=== PATIENT | male | born 1945 | race Caucasian/White ===

== ENCOUNTER 2022-03-13 05:42 | Inpatient (IN) ==
--- NOTE | 2022-02-25 10:54 | PAT Medication Instructions ---
Medication Instructions Date of Service February 25, 2022 Home Medications Medication Instructions Recorded acetaminophen 325 mg tablet (Mapap 650 mg PO Q4H PRN pain #30 tabs 06/23/18 (acetaminophen)) amlodipine 5 mg tablet (Norvasc) 5 mg PO QAM #30 tabs 06/23/18 nitroglycerin 0.4 mg sublingual tablet 0.4 mg sublingual DIRECTED PRN Chest Pain acetaminophen 325 mg tablet (Mapap (acetaminophen)) 650 mg PO Q4H PRN pain amlodipine 5 mg tablet (Norvasc) 5 mg PO QAM aspirin 81 mg tablet,delayed release 81 mg PO QAM atorvastatin 10 mg tablet 10 mg PO PM fosinopril 40 mg tablet 40 mg PO QAM hydrochlorothiazide 25 mg tablet 12.5 mg PO QAM insulin glargine 100 unit/mL subcutaneous solution (Lantus U-100 Insulin) 22 unit subcut QAM metformin 1,000 mg tablet 1,000 mg PO BID metoprolol succinate 25 mg tablet,extended release 24 hr 50 mg PO QAM pantoprazole 40 mg tablet,delayed release 40 mg PO QAM Continue as directed nitroglycerin 0.4 mg sublingual tablet 0.4 mg sublingual DIRECTED PRN Chest Pain (if needed) ASK your prescriber and surgeon aspirin 81 mg tablet,delayed release 81 mg PO QAM DO NOT take the morning of surgery fosinopril 40 mg tablet 40 mg PO QAM hydrochlorothiazide 25 mg tablet 12.5 mg PO QAM metformin 1,000 mg tablet 1,000 mg PO BID Take morning of surgery With a small sip of water, OTHERWISE NOTHING TO EAT OR DRINK AFTER MIDNIGHT: acetaminophen 325 mg tablet (Mapap (acetaminophen)) 650 mg PO Q4H PRN pain (if needed) amlodipine 5 mg tablet (Norvasc) 5 mg PO QAM metoprolol succinate 25 mg tablet,extended release 24 hr 50 mg PO QAM pantoprazole 40 mg tablet,delayed release 40 mg PO QAM Take evening before surgery acetaminophen 325 mg tablet (Mapap (acetaminophen)) 650 mg PO Q4H PRN pain (if needed) atorvastatin 10 mg tablet 10 mg PO PM metformin 1,000 mg tablet 1,000 mg PO BID Insulin Dependent Diabetic Patients * Test your blood sugar the morning of surgery * If Blood Sugar is GREATER THAN 150, take HALF of your regular dose of: insulin glargine 100 unit/mL subcutaneous solution (Lantus U-100 Insulin) take 11 units * If Blood Sugar is LESS THAN 150, DO NOT TAKE ANY: insulin glargine 100 unit/mL subcutaneous solution (Lantus U-100 Insulin) Other Notes If you have any questions please call us at [phone] or [phone] or [phone] or [phone]
--- NOTE | 2022-02-27 10:34 | Anesthesiology Consultation ---
Date of Service February 27, 2022 Assessment & Plan (1) Encounter for pre-operative examination: Plan - awaiting confirmed EKG from [facility]. - check BSG am DOS. - difficult intubation: s/p cervical spine fusion with reduced ROM. H/o multiple glidescope intubations: grade 1 view. - cardiology 02/26/[address] [facility]: "...CAD-PCI x2 to LAD 07/2005 at [place] (cath due to abnormal stress test)...lumbar spine surgery on 03/13/22. This will be performed by Dr. Munoz [place] [facility]feeling well and does not offer any cardiovascular concerns today. Admits to feeling off balance and has limitation with activities due to his low back discomfort. Fortunately he has not had any falls or syncope. Denies chest pain, palpitations, and lightheadedness/dizziness. No changes in appetite, nausea, or vomiting. Denies shortness of breath, PND, and swelling. Denies abnormal bleeding. Denies fevers and chills...preop risk assessment, per Juan M Criteria, patient was counseled that he would be placed at a moderate risk (6.6%) for any adverse perioperative cardiovascular events associated with lumbar spine surgery. Patient is on a good medication regimen and no other cardiac testing or interventions would further lower that risk. Patient states he understands and is accepting of that risk and wishes to proceed with surgery- Patient should continue aspirin without interruption. If patient is to hold aspirin it is not recommend to hold any longer than 7 days..." - COVID screening: Per assessment on 02/27/2022: Travel screen negative, no known COVID-19 positive contacts or current COVID-19 related symptoms in past 2 weeks. Pt vaccinated. Surgeon arranging preop COVID testing, scheduled 03/11/2022. Awaiting results. Chart Review Chart Review: Pending: Refer to Additional Notes / Consult section and Patient seen in Pre Admission Testing Teaching & Discussion Pre-Anesthesia Teaching/Discussion Notes: Instructed NPO after midnight before surgery, except medications with 15 cc of water. Medication instructions provided according to the PAT guidelines. History Surgery Operation Date: 03/13/22 07:45 Proposed Procedures p L2-L3 Decompression and Fusion, Possible L1-L2, L3-L5 Hardware Removal, Spinal Cord Monitoring - Gavin Munoz, Height/Weight Height: 5 ft 11 in Weight: 97.1 kg Allergies Allergy/AdvReac Type Severity Reaction Status Date / Time No Known Allergies Allergy Verified 02/25/22 08:16 Medications Home Medications Medication Instructions Recorded Confirmed Last Taken nitroglycerin 0.4 mg sublingual 0.4 mg sublingual DIRECTED PRN 06/19/18 02/25/22 Unknown tablet Chest Pain acetaminophen 325 mg tablet (Mapap 650 mg PO Q4H PRN pain #30 tabs 06/23/18 02/25/22 Unknown (acetaminophen)) amlodipine 5 mg tablet (Norvasc) 5 mg PO QAM #30 tabs 06/23/18 02/25/22 Unknown aspirin 81 mg tablet,delayed 81 mg PO QAM 02/25/22 02/25/22 Unknown release atorvastatin 10 mg tablet 10 mg PO PM 02/25/22 02/25/22 Unknown fosinopril 40 mg tablet 40 mg PO QAM 02/25/22 02/25/22 Unknown hydrochlorothiazide 25 mg tablet 12.5 mg PO QAM 02/25/22 02/25/22 Unknown insulin glargine 100 unit/mL 22 unit subcut QAM 02/25/22 02/25/22 Unknown subcutaneous solution (Lantus U-100 Insulin) metformin 1,000 mg tablet 1,000 mg PO BID 02/25/22 02/25/22 Unknown metoprolol succinate 25 mg 50 mg PO QAM 02/25/22 02/25/22 Unknown tablet,extended release 24 hr pantoprazole 40 mg tablet,delayed 40 mg PO QAM 02/25/22 02/25/22 Unknown release Past Medical History Medical History (Updated 02/27/22 @ 11:24 by Viri Hernandez PA-C) Barretts esophagus CAD (coronary artery disease) 2005. Stents x 2 to LAD 07/2005> follows with Dr. Weaver at [facility] Diabetes mellitus treated with insulin and oral medication Diabetic macular edema gets injections every 6-8 weeks Diabetic neuropathy feet, legs, hands Diabetic retinopathy gets injections every 6-8 weeks Difficult intubation s/p cervical spine fusion with limited ROM, h/o glidescope intubation GERD (gastroesophageal reflux disease) controlled, stable per pt Hyperlipidemia Hypertension controlled, stable per pt Sleep apnea On CPAP-compliant Patient denies h/o stroke, seizures, heart attack, heart failure, blood clots or blood transfusions. Exercise / Class Metabolic Activity II 4-5 Yardwork/Stairs/Walk up hill (denies CP or SOB with 1 FOS) Past Family History Family History Daughter Multiple sclerosis Father Diabetes Aunt Diabetes Uncle Diabetes Brother Diabetes Past Surgical History Surgical History (Updated 02/27/22 @ 11:25 by Viri Hernandez PA-C) History of appendectomy History of arthroscopy right knee History of carpal tunnel release right History of cholecystectomy History of colonoscopy History of esophagogastroduodenoscopy (EGD) History of excision of pilonidal cyst History of heart artery stent 2005; stents x 2 History of tonsillectomy History of tooth extraction Hx of vasectomy S/P cervical spinal fusion LIMITED ROM ALL DIRECTIONS S/P ERCP 06/20/18: Grade 1 view, glidescope 3, ETT 8. S/P lumbar fusion X2 total Glidescope #3 used with gr I view Past Anesthesia History Difficult Airway and No Family Hx of Anesthesia Complications History of PONV No Hx of PONV and No Hx of Motion Sickness Social History Smoking Status: Never smoker Do You Dip or Chew Tobacco: No Hx Alcohol Use: No Hx Substance Use: No substance use type: does not use Review of Systems Patient denies chest pain, shortness of breath, dyspnea on exertion, fever, chills, cough, wheezing, or palpitations. Physical Exam Vital Signs Vitals BP 142/72 P 63 TEMP 98.8 SP02 96% on RA RESP 17 Physical Limited cervical extension range of motion without pain TMD 3.5 finger breadths Mallampati Score 3 Dentition: intact, several caps/crowns-upper front; denies chipped or loose teeth, implants or bridges Lungs: normal respiratory effort. Clear throughout to auscultation, no adventitious breath sounds Cardiac: regular rate and rhythm, no murmurs noted Carotid arteries: negative bruit bilat Lab Results Anesthesia Preop Results Results Anesthesia Widget: WBC 7.20 K/ul (4.8-10.8) 02/27/22 Hgb 13.7 g/dl (14.0-18.0) L 02/27/22 Hct 39.4 % (40.1-51.0) L 02/27/22 Plt 262 K/uL (130-400) 02/27/22 Na 139 mmol/L (136-145) 02/27/22 K 4.9 mmol/L (3.5-5.1) 02/27/22 Cl 103 mmol/L (98-107) 02/27/22 CO2 31 mmol/L (21-32) 02/27/22 BUN 22 mg/dl (6-23) 02/27/22 Creat 1.04 mg/dl (0.6-1.4) 02/27/22 Glucose Level 152 mg/dl (70-99(Fasting)) H 02/27/22 PT 10.5 Seconds (9.0-12.0) 02/27/22 PTT 26.2 Seconds (21.0-31.0) 02/27/22 INR 1.0 (0.9-1.1) 02/27/22 HA1c 7.6 % (4.5-5.6) H 02/27/22 Urine Color Yellow 02/27/22 Urine Appearance Clear (Clear) 02/27/22 Urine pH 5.5 (4.5-7.5) 02/27/22 Urine Specific Bloomer 1.012 (1.000-1.030) 02/27/22 Urine Protein Trace (Negative) H 02/27/22 Urine Glucose (UA) 2+ (Negative) H 02/27/22 Urine Ketones Negative (Negative) 02/27/22 Urine Blood Negative (Negative) 02/27/22 Urine Nitrite Negative (Negative) 02/27/22 Urine Bilirubin Negative (Negative) 02/27/22 Urine Urobilinogen Negative (Negative) 02/27/22 Urine Leukocyte Esterase Negative (Negative) 02/27/22 Urine WBC (Auto) 0 /hpf (0-5) 02/27/22 Urine RBC (Auto) 0-4 /hpf (0-4) 02/27/22 Urine Hyaline Casts (Auto) 0 /lpf (0-5) 02/27/22 Urine Epithelial Cells (Auto) 0-5 /lpf (0-5) 02/27/22 Urine Bacteria (Auto) Negative (Negative) 02/27/22 Blood Type O Negative 02/27/22 Antibody Screen NEGATIVE 02/27/22 Testing Laboratory Results Surgeon's office made aware of elevated A1c. Electrocardiogram Date: 02/27/22 Chest X-Ray Date: 02/27/22 Cervical spinal fixation hardware is seen. Cardiomegaly is noted. The lungs are clear. No evidence of pleural effusion or pneumothorax. IMPRESSION: No acute chest disease. Echocardiogram Date: 02/26/22 EF 61% Grade I diastolic dysfunction Mild aortic valve sclerosis, aortic stenosis is absent Aortic root mildly enlarged 4 cm Proximal ascending thoracic aorta mildly enlarged 4 cm Stress Test Date: 08/19/18 Pharmacologic EF 50-55% No rest or stress associated MPI defects. No evidence of myocardial ischemia or infarct
[2022-03-13] MEDS ORDERED: ACETAMINOPHEN 500 MG TAB PO SCH (06:00)
[2022-03-13] MEDS ORDERED: CeleBREX 200 MG CAP PO SCH (06:00)
[2022-03-13] MEDS ORDERED: LR 15ML/HR IV SCH (06:00)
[2022-03-13] MEDS ORDERED: ceFAZolin 2000MG 2,000 MG/15 ML SYR IV SCH (06:00)
[2022-03-13] MEDS ORDERED: GABAPENTIN 300 MG CAP PO SCH (06:00)
[2022-03-13] MEDS ORDERED: KETAMINE 50 MG/5 ML SYRINGE ONE (06:53)
[2022-03-13] MEDS ORDERED: LIDOCAINE 2% 20 MG/ML 5 ML SYR IV ONE (06:53)
[2022-03-13] MEDS ORDERED: ROCURONIUM BROMIDE 10 MG/ML 5 ML VIAL IV ONE ×3 (06:53→08:31)
[2022-03-13] MEDS ORDERED: fentaNYL citrate 100 MCG/2 ML VIAL ONE (06:53)
[2022-03-13] MEDS ORDERED: DEXAMETHASONE SOD INJ 4 MG/ML VIAL ONE (06:53)
[2022-03-13] MEDS ORDERED: PROPOFOL IV EMULSION 10 MG/ML 20 ML VIAL IV ONE (06:53)
[2022-03-13] MEDS ORDERED: ONDANSETRON INJ 2 MG/ML 2 ML VIAL ONE (06:53)
[2022-03-13] MEDS ORDERED: HYDROmorphone INJ 2 MG/ML SYR/VIAL ONE ×2 (06:54→07:06)
[2022-03-13] MEDS ORDERED: MIDAZOLAM HCL 1 MG/ML 2ML VIAL ONE (06:56)
[2022-03-13] MEDS ORDERED: BUPIVACAINE/EPINEPHRINE 0.25% 1:200,000 30 ML VIAL ONE (07:05)
[2022-03-13] MEDS ORDERED: ceFAZolin 330 MG/ML 1 GM VIAL ONE (07:05)
[2022-03-13] MEDS ORDERED: ONDANSETRON INJ 2 MG/ML 2 ML VIAL IV PRN ×2 (07:06→11:30)
[2022-03-13] MEDS ORDERED: ATROPINE SULFATE 0.1 MG/ML 10ML SYR IV PRN (07:06)
[2022-03-13] MEDS ORDERED: LABETALOL HCL IV 5 MG/ML 20ML IV PRN (07:06)
[2022-03-13] MEDS ORDERED: HYDROmorphone INJ 1 MG/ML SYRINGE IV PRN ×2 (07:06→11:30)
[2022-03-13] MEDS ORDERED: PROMETHAZINE HCL 12.5 MG in SODIUM CHLORIDE 0.9% 50 ML IV PRN ×2 (07:06→11:30)
--- NOTE | 2022-03-13 07:30 | History & Physical Bridge Note ---
Date of Service March 13, 2022 History & Physical Bridge Note I have examined the patient, reviewed the History & Physical and in the interval since the performance of the History & Physical I have noted the following changes of clinical significance: no changes noted
--- NOTE | 2022-03-13 07:31 | History & Physical Report ---
Date of Service March 13, 2022 Assessment & Plan (1) Neurogenic claudication due to lumbar spinal stenosis: Plan: L2-L3 decompression and fusion, possible L1-L2, L3-L4 hardware removal History of Present Illness Chief Complaint: Back and leg pain Primary Care Provider: Cortez Root This is a 76-year-old male who presents with current persistent back and leg pain. Failed course of nonoperative care is here for surgical intervention. Allergies Allergy/AdvReac Type Severity Reaction Status Date / Time empagliflozin AdvReac Joint Pain Verified 03/13/22 06:05 [From Jardiance] pregabalin [From Lyrica] AdvReac Joint Pain Verified 03/13/22 06:06 Home Medications Medication Instructions Recorded Confirmed Type nitroglycerin 0.4 mg sublingual 0.4 mg sublingual DIRECTED PRN 06/19/18 03/13/22 History tablet Chest Pain acetaminophen 325 mg tablet (Mapap 650 mg PO Q4H PRN pain #30 tabs 06/23/18 03/13/22 Rx (acetaminophen)) amlodipine 5 mg tablet (Norvasc) 5 mg PO QAM #30 tabs 06/23/18 03/13/22 Rx aspirin 81 mg tablet,delayed 81 mg PO QAM 02/25/22 03/13/22 History release atorvastatin 10 mg tablet 10 mg PO PM 02/25/22 03/13/22 History fosinopril 40 mg tablet 40 mg PO QAM 02/25/22 03/13/22 History hydrochlorothiazide 25 mg tablet 12.5 mg PO QAM 02/25/22 03/13/22 History insulin glargine 100 unit/mL 22 unit subcut QAM 02/25/22 03/13/22 History subcutaneous solution (Lantus U-100 Insulin) metformin 1,000 mg tablet 1,000 mg PO BID 02/25/22 03/13/22 History metoprolol succinate 25 mg 50 mg PO QAM 02/25/22 03/13/22 History tablet,extended release 24 hr pantoprazole 40 mg tablet,delayed 40 mg PO QAM 02/25/22 03/13/22 History release Past Med/Surg History Medical History (Updated 03/13/22 @ 07:31 by Gavin Munoz DO) Barretts esophagus CAD (coronary artery disease) 2005. Stents x 2 to LAD 07/2005> follows with Dr. Weaver at [facility] Diabetes mellitus treated with insulin and oral medication Diabetic macular edema gets injections every 6-8 weeks Diabetic neuropathy feet, legs, hands Diabetic retinopathy gets injections every 6-8 weeks Difficult intubation s/p cervical spine fusion with limited ROM, h/o glidescope intubation GERD (gastroesophageal reflux disease) controlled, stable per pt Hyperlipidemia Hypertension controlled, stable per pt Sleep apnea On CPAP-compliant Surgical History (Updated 02/27/22 @ 11:25 by Viri Hernandez PA-C) History of appendectomy History of arthroscopy right knee History of carpal tunnel release right History of cholecystectomy History of colonoscopy History of esophagogastroduodenoscopy (EGD) History of excision of pilonidal cyst History of heart artery stent 2005; stents x 2 History of tonsillectomy History of tooth extraction Hx of vasectomy S/P cervical spinal fusion LIMITED ROM ALL DIRECTIONS S/P ERCP 06/20/18: Grade 1 view, glidescope 3, ETT 8. S/P lumbar fusion X2 total Glidescope #3 used with gr I view Family History Daughter Multiple sclerosis Father Diabetes Aunt Diabetes Uncle Diabetes Brother Diabetes Social History Smoking Status: Never smoker Second Hand Exposure: No; Do You Dip or Chew Tobacco: No; Tobacco Cessation Education Requested by Patient: No Hx Alcohol Use: No Hx Substance Use: No Preferred Language: Palauan Communication Ability: Effective Ring Stamper Required: No Beliefs That Will Affect Care: None Current Living Situation: Spouse Current Living Situation Comment: Lives at home with ; states daughter, RN, lives 6 miles away to help Other Information That Helps Us Care for You: No Feels Safe at Home: Yes Safety Concerns: Feels Safe At This Time Assistive Devices: CPAP, Glasses and Hearing Aid - Bilateral Physical Exam Physical Exam: Patient is alert and oriented Heart regular rhythm Lungs clear Results & Data Results & Data ([facility]) Vital Signs (Past 12 Hours) Vital Signs Temp Pulse Resp BP Pulse Ox O2 Del Method 03/13/22 06:13 36.8 C 63 18 173/82 H 99 Room Air
[2022-03-13] MEDS ORDERED: FLOSEAL HEMOSTATIC MATRIX 10ML TOP ONE (08:26)
[2022-03-13] MEDS ORDERED: GLYCOPYRROLATE 0.2 MG/ML VIAL ONE ×2 (08:31→09:25)
[2022-03-13] MEDS ORDERED: ePHEDrine sulfate 50 MG/ML SYR ONE (09:07)
[2022-03-13] MEDS ORDERED: NEOSTIGMINE METHYLSULFATE 1 MG/ML 10ML VIAL ONE (09:25)
--- NOTE | 2022-03-13 09:50 | Operative Report ---
Post Operative Report Pre & Post Diagnosis Operation Date: 03/13/22 07:30 Pre-Op Diagnosis: Spinal Stenosis of Lumbar Region with Radiculopath Post-Op Diagnosis: Spinal Stenosis of Lumbar Region with Radiculopath I identified the patient and participated in the time-out.: Yes Procedure Operation Date: 03/13/22 07:30 Actual Procedures #1 removal of instrumentation L3-L5. #2 exploration of fusion L3-L5. #3 lumbar decompression bilateral medial facetectomies and foraminotomies L1-L2 L2-L3. #4 posterior spinal fusion L2-L3. #5 placement posterior instrumentation L2-L3. #6 interbody fusion L2-L3. #7 placement of Spira 9 x 26 mm cage at L2-L3. #8 placement locally harvested morselized autograft in the posterior gutters. #9 placement of I factor model V toss in the interbody space and posterior lateral gutters. Surgeon Gavin Munoz, DO Engineering Lab Technician Stefan Boogie Estimated Blood Loss 250 Findings Consistent with Post-Op Diagnosis Specimens None Indications This is a 76-year-old male who presents above-mentioned diagnosis after failing course of nonoperative care is here for surgical invention. Description of Procedure Patient was met with identified informed consent obtained. Patient was then taken to the operative suite underwent a patient placed in a prone position the Socrates table on top of the Behzad frame. All bony prominences well-padded eyes inspected to ensure no external pressure placed upon them. This point the lumbar spine was prepped and draped in normal sterile fashion. Sharp dissection with the assistance of Bovie cautery was performed down to and exposing the lamina and transverse processes of L2 and instrumentation L3 L4-5 bilaterally. And proceeded move the hardware bilaterally explore the fusion mass noting it to be mature and intact. I had to retain the L4 screws bilaterally as they were ensconced and bone on the blood loss required to remove them would have been significant. I then performed a complete laminectomy of L2 partial left of the L1 including bilateral medial facetectomies and foraminotomies addressing severe spinal stenosis. Pedicle screws were then placed in L2 and L3 bilaterally with assistance of fluoroscopy and appropriately sized howard placed. By way of a transforaminal approach on the right a complete discectomy of L to L3 was performed endplates curetted to subcortically bone and a 9 x 26 mm spiral cage filled with I factor tapped in position. The rods were then compressed locked into final position bilaterally. The transverse processes of L to L3 burred to subcortical bleeding bone. I factor model V toss and locally harvested morselized autograft was placed in the posterior gutters. 15 round CLAUDE drain inserted. The incision was then closed with 1 Vicryl the fascia 2-0 Vicryl subcutaneously and 4 Monocryl for final skin closure. Steri-Strip sterile dressings placed. Patient waken taken to PACU stable condition. Please note spinal cord monitoring was utilized at the procedure no changes noted. Lastly Stefan Boogie was present out the entire surgery involved the patient positioning complex portions of the surgery and final skin closure. I attest to the content of the Intraoperative Record and any orders documented therein. Any exceptions are noted below.
--- NOTE | 2022-03-13 10:52 | Anesthesiology Progress Note ---
Date of Service March 13, 2022 Anesthesia Post Procedure Vital Signs Vital Signs: Temp Pulse Pulse Resp BP Pulse Ox O2 Del Method 03/13/22 10:35 51 L 10 L 153/72 H 100 Oxymask 03/13/22 10:45 50 L 12 152/73 H 100 Oxymask 03/13/22 10:25 53 L 8 L 150/72 H 100 Oxymask 03/13/22 10:16 36.2 C L 58 L 20 138/60 99 Oxymask 03/13/22 06:13 36.8 C 63 18 173/82 H 99 Room Air O2 Flow Rate 03/13/22 10:35 5 03/13/22 10:45 5 03/13/22 10:25 13 03/13/22 10:16 13 03/13/22 06:13 Transfer of Care Handoff Completed per policy Notes Mental Status: alert / awake / arousable Patient Amnestic to Procedure: Yes Nausea / Vomiting: adequately controlled Pain: adequately controlled Airway Patency, RR, SpO2: stable & adequate BP & HR: stable & adequate Hydration State: stable & adequate Anesthetic Complications: no major complications apparent
[2022-03-13] MEDS ORDERED: FAMOTIDINE 20 MG TAB PO PRN (11:30)
[2022-03-13] MEDS ORDERED: NALOXONE HCL 0.4 MG/1 ML VIAL/CARP IV PRN (11:30)
[2022-03-13] MEDS ORDERED: LORazepam 0.5 MG TAB PO PRN (11:30)
[2022-03-13] MEDS ORDERED: diphenhydrAMINE Capsule 25 MG CAP PO PRN (11:30)
[2022-03-13] MEDS ORDERED: SOD PHOSPHATE/SOD BIPHOSPHATE ENEMA 132 ML BTL PR PRN (11:30)
[2022-03-13] MEDS ORDERED: hydrOXYzine HCl 25 MG TAB PO PRN (11:30)
[2022-03-13] MEDS ORDERED: MAGNESIUM HYDROXIDE SUSP 30 ML UDC PO PRN (11:30)
[2022-03-13] MEDS ORDERED: bisacodyL 10 MG SUPP PR PRN (11:30)
[2022-03-13] MEDS ORDERED: HYDROmorphone INJ 0.5 MG/0.5 ML SYR IV PRN (11:30)
[2022-03-13] MEDS ORDERED: LORazepam 0.5 MG in SYRINGE 0.25 ML IV PRN (11:30)
[2022-03-13] MEDS ORDERED: ALUMINUM/MAGNESIUM SUSP 30 ML UDC PO PRN (11:30)
[2022-03-13] MEDS ORDERED: ACETAMINOPHEN 1,000 MG/100 ML VIAL IV PRN (11:30)
[2022-03-13] MEDS ORDERED: METOCLOPRAMIDE HCL INJ 5 MG/ML 2 ML VIAL IV PRN (11:30)
[2022-03-13] MEDS ORDERED: NITROGLYCERIN SL 0.4 MG/TAB TAB SL PRN (11:30)
[2022-03-13] MEDS ORDERED: ONDANSETRON 4 MG OD TAB PO PRN (11:30)
[2022-03-13] MEDS ORDERED: PHARMACY GLYCEMIC MGMT CONSULT PRN (12:15)
[2022-03-13] MEDS: SODIUM CHLORIDE 0.9% 1000ML 1,000 ML IV SCH ×2 (12:23→22:32)
--- NOTE | 2022-03-13 12:26 | Pharmacy Report ---
Pharmacy Glycemic Short Note 2 - Date of Service March 13, 2022 - Glycemic Short BSG Results (Last 24 hours): 03/13/22 03/13/22 06:14 10:27 POC Glucose 131 H 179 H OUTPATIENT ANTIDIABETIC REGIMEN: * Lantus 22 units SC AM * Metformin 1000 mg PO BID * HbA1c = 7.6% (02/27/22) ASSESSMENT: * 76 yo M admitted s/p spinal decompression and fusion. Pharmacy has been consulted to assist with inpatient glycemic management. Patient is a type 2 diabetic on insulin and metformin at home. No diet ordered at this time but likely will be once patient reaches floor. * Preoperative fasting BSG was 131 mg/dL, at goal. Postop BSG was 179 mg/dL. Received 8 mg IV dexamethasone intraoperatively. Did not take any Lantus or Metformin this AM. * No ongoing steroids ordered. Will stress home Lantus dose x 1 today to cover steroids. Reassess basal in the AM. Novolog based on weight/stress of 3. Targeting tighter goal range to prevent postop infection and promote wound healing. PLAN FOR INPATIENT GLYCEMIC CONTROL: * Hold outpatient oral diabetes medications * Basal insulin * Lantus 30 units SC x 1 * Bolus insulin * NovoLog per scale ACHS or Q6hrs while NPO * Goal Range: Low 110 mg/dL - High 140 mg/dL * Correction Factor: 15 mg/dL/unit * Nutritional / Prandial insulin per carb ratio of 1 unit per 6 grams CHO consumed
--- NOTE | 2022-03-13 12:28 | Fluoroscopy Report ---
FL lumbar spine 2-3V CLINICAL HISTORY: L2-L4 DECOMPRESSION/FUSION POSSIBLE L1-L2/ L3-L5 HW REMOVAL COMPARISON STUDY: None. FLUOROSCOPY TIME: 12 seconds. FINDINGS: 2 fluoroscopic spot images of the lumbar spine demonstrate posterior decompression fusion a t L2-L3 with pedicle screws and rods. There is a disc spacer in place. The hardware appears intact. T here are pedicle screws noted at the L4 level with removal of the lower lumbar spine hardware. IMPRESSION: Fluoroscopic assistance provided for posterior fusion and hardware removal within the lum bar spine as described above. ACT 112: Negative or not required by law. Electronically signed by: Peng Ko M.D. 03/13/2022 12:27 PM
[2022-03-13] MEDS ORDERED: GLUCAGON FOR INJ 1 MG VIAL IM PRN (12:30)
[2022-03-13] MEDS ORDERED: DEXTROSE 50% 50 ML SYRINGE IV PRN (12:30)
[2022-03-13] MEDS ORDERED: CARBOHYDRATES FOR HYPOGLYCEMIA PO PRN (12:30)
[2022-03-13] MEDS ORDERED: GLUCOSE 40% GEL 15 GM TUBE PO PRN (12:30)
[2022-03-13] MEDS ORDERED: GLUCOSE 10 TAB/TUBE PO PRN (12:30)
[2022-03-13] MEDS ORDERED: LANTUS PER UNIT CHARGE SQ ONE (12:30)
[2022-03-13] MEDS: INSULIN ASPART PER UNIT SC SCH ×3 (13:15→21:04)
[2022-03-13] MEDS: ceFAZolin 2000MG 2,000 MG/15 ML SYR IV SCH ×2 (17:24→23:34)
[2022-03-13] MEDS: ATORVASTATIN 10 MG TAB PO SCH (20:01)
[2022-03-13] MEDS: DOCUSATE SODIUM/SENNA 50/8.6MG TAB PO SCH (20:01)
--- NOTE | 2022-03-13 21:10 | Hospitalist Consultation ---
Date of Consultation March 13, 2022 Assessment & Plan (1) Fusion of spine: -Patient is afebrile, hemodynamically stable and stable on RA -Management per primary team -Pain control, bowel regimen, anti-emetics (2) Hypertension: -Hold RESIDENTIAL PROGRAM DIRECTOR Fosinopril and hydrochlorothiazide for now to ensure kidney protection and prevent electrolyte abnormalities -Can continue RESIDENTIAL PROGRAM DIRECTOR metoprolol and amlodipine as BP has been stable -BMP ordered for AM (3) CAD (coronary artery disease): -Continue RESIDENTIAL PROGRAM DIRECTOR statin -Resume ASA at discretion of surgeon (4) Diabetes: -Stopped RESIDENTIAL PROGRAM DIRECTOR oral antihyperglycemic agents while admitted -Continue the rest of the antihyperglycemic management already ordered -Pharmacy glycemic management consultation paced by primary team (5) Barretts esophagus: -RESIDENTIAL PROGRAM DIRECTOR Pantoprazole (6) HLD (hyperlipidemia): -RESIDENTIAL PROGRAM DIRECTOR statin Plan The patient was discussed withi Dr. Lewis at the time of the consult Supervising Physician Co-Signing Physician Notes Patient seen and examined, chart reviewed, case discussed with ANALI Olivia and I agree with the assessment and plan as above. In brief, patient is a 76yo male with history of stable CAD s/p PCI x 2 to LAD in 2005 - patient follows with [facility] and obtained preoperative clearance from them on 02/26/22. Also with DM, HTN, HLP, GERD and Barretts esophagus. Patient with lumbar spinal stenosis with radiculopathy - he had surgery performed by Dr. Munoz today 03/13/22 wt removal of L3-L5 instrumentation as well as decompression and fusion and placement of Spira cage and autograft. Surgery went well with no immediate complications identified. EBL of 250mL. Pain is presently well controlled. Patient has a Givens in place - reports he has had issues with post-operative urinary retention in the past. He has eaten dinner without difficulty. On exam he is resting comfortably, NAD NC/AT, PERRL, Neck supple +S1/S2, regular, no m/r/g Lungs CTA Abd soft, NT/ND Labs and images reviewed Assessment/Plan: s/p lumbar surgery - management per primary team CAD - stable - resume ASA, Atorvastatin, metoprolol and Fosinopril on DC HTN - BP controlled - resume Metoprolol, Amlodipine, HCTZ. Chemistry is ordered for AM - assess renal function and electrolytes HLP - Resume Atorvastatin Holt's esophagus - Resume Protonix DM - Glycemic management consultation placed. Patient received Dexamethasone. Remainder of plan as above History of Present Illness Reason for Consultation: Medical management of post-op patient Requesting Physician: Dr. Gavin Munoz Attending Physician: Gavin Munoz, DO History of Present Illness Alex is a 76 year old male with a PMH of HTN, DLD, previous cervical spinal fusion, CAD, DM II, GERD and Holt's esophagus, sleep apnea, who presented to [facility] today for #1 removal of instrumentation L3-L5. #2 exploration of fusion L3-L5. #3 lumbar decompression bilateral medial facetectomies and foraminotomies L1-L2 L2-L3. #4 posterior spinal fusion L2-L3. #5 placement posterior instrumentation L2-L3. #6 interbody fusion L2-L3. #7 placement of Spira 9 x 26 mm cage at L2-L3. #8 placement locally harvested morselized autograft in the posterior gutters. #9 placement of I factor model V toss in the interbody space and posterior lateral gutters. Per chart review, there were no reported intraoperative complications and EBL of 250 mL. Per the anesthesia charting, the patient remained hemodynamically stable throughout the procedure. At the time of the exam the patient was resting comfortably in bed in no acute distress. He states that his back pain is currently well-controlled and he has no complaints. He was able to eat dinner without issue and has been urinating - Givens in place. He denies saddle anesthesia, numbness/tingling in the lower extremities and loss of bowel or bladder function. Allergies Allergy/AdvReac Type Severity Reaction Status Date / Time empagliflozin AdvReac Joint Pain Verified 03/13/22 06:05 [From Jardiance] pregabalin [From Lyrica] AdvReac Joint Pain Verified 03/13/22 06:06 Home Medications Medication Instructions Recorded Confirmed Type nitroglycerin 0.4 mg sublingual 0.4 mg sublingual DIRECTED PRN 06/19/18 03/13/22 History tablet Chest Pain acetaminophen 325 mg tablet (Mapap 650 mg PO Q4H PRN pain #30 tabs 06/23/18 03/13/22 Rx (acetaminophen)) amlodipine 5 mg tablet (Norvasc) 5 mg PO QAM #30 tabs 06/23/18 03/13/22 Rx aspirin 81 mg tablet,delayed 81 mg PO QAM 02/25/22 03/13/22 History release atorvastatin 10 mg tablet 10 mg PO PM 02/25/22 03/13/22 History fosinopril 40 mg tablet 40 mg PO QAM 02/25/22 03/13/22 History hydrochlorothiazide 25 mg tablet 12.5 mg PO QAM 02/25/22 03/13/22 History insulin glargine 100 unit/mL 22 unit subcut QAM 02/25/22 03/13/22 History subcutaneous solution (Lantus U-100 Insulin) metformin 1,000 mg tablet 1,000 mg PO BID 02/25/22 03/13/22 History metoprolol succinate 25 mg 50 mg PO QAM 02/25/22 03/13/22 History tablet,extended release 24 hr pantoprazole 40 mg tablet,delayed 40 mg PO QAM 02/25/22 03/13/22 History release Patient History Medical History Barretts esophagus CAD (coronary artery disease) 2005. Stents x 2 to LAD 07/2005> follows with Dr. Weaver at [facility] Diabetes mellitus treated with insulin and oral medication Diabetic macular edema gets injections every 6-8 weeks Diabetic neuropathy feet, legs, hands Diabetic retinopathy gets injections every 6-8 weeks Difficult intubation s/p cervical spine fusion with limited ROM, h/o glidescope intubation GERD (gastroesophageal reflux disease) controlled, stable per pt Hyperlipidemia Hypertension controlled, stable per pt Sleep apnea On CPAP-compliant Surgical History History of appendectomy History of arthroscopy right knee History of carpal tunnel release right History of cholecystectomy History of colonoscopy History of esophagogastroduodenoscopy (EGD) History of excision of pilonidal cyst History of heart artery stent 2005; stents x 2 History of tonsillectomy History of tooth extraction Hx of vasectomy S/P cervical spinal fusion LIMITED ROM ALL DIRECTIONS S/P ERCP 06/20/18: Grade 1 view, glidescope 3, ETT 8. S/P lumbar fusion X2 total Glidescope #3 used with gr I view Family History Daughter Multiple sclerosis Father Diabetes Aunt Diabetes Uncle Diabetes Brother Diabetes Social History Smoking Status: Never smoker Second Hand Exposure: No; Do You Dip or Chew Tobacco: No; Tobacco Cessation Education Requested by Patient: No Hx Alcohol Use: No Hx Substance Use: No Preferred Language: Mohawk Communication Ability: Effective Account Review Specialist Required: No Beliefs That Will Affect Care: None Current Living Situation: Spouse Current Living Situation Comment: Lives at home with ; states daughter, RN, lives 6 miles away to help Other Information That Helps Us Care for You: No Feels Safe at Home: Yes Safety Concerns: Feels Safe At This Time Assistive Devices: CPAP, Glasses and Hearing Aid - Bilateral Review of Systems Review of Systems: Denies current fever, chills, headache, changes in vision, hearing, taste, and smell, chest pain, SOB, cough, abdominal pain, nausea, vomiting, diarrhea, hematemesis, melena, dysuria, hematuria, and recent falls. All systems have been reviewed and are otherwise negative. Physical Exam Physical Exam: Physical Exam: General: In no acute distress, stated age, well-nourished, good hygiene HEENT: Normocephalic, atraumatic, no scleral icterus, pupils around round, symmetrical, and reactive to light, moist mucus membranes, trachea midline, no thyromegaly Chest/Pulm: No respiratory distress, symmetrical chest expansion, clear breath sounds throughout Cardiac: RRR, no murmurs noted Abdomen: Negative for ascites and bruising, normoactive bowel sounds, soft, non-tender to palpation throughout : Patient with givens cath in place, currently draining clear yellow urine Musculoskeletal: Patient with surgical site currently bandaged and without signs of drainage, drain currently in place and draining a small amount of blood, patient with intact motor function and sensation in the BL LE's Extremities: Radial, dorsalis pedis, and posterior tibial pulses are intact and symmetrical, no edema noted in the BL LE's Skin: Warm, dry, no rashes , lesions, or scars noted Neuro: Alert and oriented to person, place, month, year, and president, no focal defects, CN II-XII tested and intact, finger to nose test negative, no tremors noted Psych: No acute distress, calm and cooperative during the exam Results & Data Results & Data ([facility]) Vital Signs (Past 12 Hours) Vital Signs Temp Pulse Pulse Resp BP Pulse Ox O2 Del Method 03/13/22 15:30 36.2 C L 56 L 18 133/61 98 Room Air 03/13/22 14:00 36.4 C L 58 L 18 160/77 H 99 Nasal Cannula 03/13/22 13:15 61 23 145/67 H 99 Nasal Cannula 03/13/22 12:15 49 L 13 150/72 H 99 Nasal Cannula 03/13/22 11:45 57 L 11 L 151/70 H 99 Nasal Cannula 03/13/22 11:15 50 L 19 156/69 H 95 Room Air 03/13/22 11:05 36.4 C L 65 10 L 157/74 H 92 Room Air 03/13/22 10:55 52 L 12 169/74 H 100 Room Air 03/13/22 10:35 51 L 10 L 153/72 H 100 Oxymask 03/13/22 10:45 50 L 12 152/73 H 100 Oxymask 03/13/22 10:25 53 L 8 L 150/72 H 100 Oxymask 03/13/22 10:16 36.2 C L 58 L 20 138/60 99 Oxymask O2 Flow Rate 03/13/22 15:30 03/13/22 14:00 2 03/13/22 13:15 2 03/13/22 12:15 2 03/13/22 11:45 2 03/13/22 11:15 03/13/22 11:05 03/13/22 10:55 03/13/22 10:35 5 03/13/22 10:45 5 03/13/22 10:25 13 03/13/22 10:16 13 Laboratory Results Abnormal lab results 03/13/22 03/13/22 03/13/22 Range/Units 06:14 10:27 13:05 POC Glucose 131 H 179 H 237 H (70-99) mg/dl 03/13/22 03/13/22 Range/Units 17:19 19:48 POC Glucose 154 H 161 H (70-99) mg/dl Diagnostic Findings Lumbar Spine X-Ray 03/13/22 08:50 FL lumbar spine 2-3V CLINICAL HISTORY: L2-L4 DECOMPRESSION/FUSION POSSIBLE L1-L2/ L3-L5 HW REMOVAL COMPARISON STUDY: None. FLUOROSCOPY TIME: 12 seconds. FINDINGS: 2 fluoroscopic spot images of the lumbar spine demonstrate posterior decompression fusion at L2-L3 with pedicle screws and rods. There is a disc spacer in place. The hardware appears intact. There are pedicle screws noted at the L4 level with removal of the lower lumbar spine hardware. IMPRESSION: Fluoroscopic assistance provided for posterior fusion and hardware removal within the lumbar spine as described above. ACT 112: Negative or not required by law. Electronically signed by: Peng Ko M.D. 03/13/2022 12:27 PM ECG Additional Comments: No ECG available at the time of the consult PG Care Time/CCT Total # of Minutes Spent Total Time Spent with Patient: Total time spent is greater than 50% in coordination of care (as documented) at patient's floor/unit and/or counseling patient: Coding [place] [address] Inpt Consult Level 3 Patient Type Established Medical Decision Making Straight Forward Diagnoses Fusion of spine M43.20 Hypertension I10 Hypertension type: essential hypertension CAD (coronary artery disease) I25.10 Associated angina: without angina Coronary Disease-Associated Artery/Lesion type: [place] artery [place] vs. transplanted heart: [place] heart Diabetes E11.42; Z79.4 Diabetes mellitus complication detail: with polyneuropathy Diabetes mellitus complication status: with neurologic complications Diabetes mellitus half-way insulin use: with half-way use Diabetes mellitus type: type 2 Barretts esophagus K22.719; K22.71 Holt's esophagus type: with dysplasia of unspecified degree HLD (hyperlipidemia) E78.5 Hyperlipidemia type: unspecified (1) Diabetes Diabetes mellitus complication detail: with polyneuropathy Diabetes mellitus complication status: with neurologic complications Diabetes mellitus local intermodal truck driver insulin use: with local intermodal truck driver use Diabetes mellitus type: type 2 Qualified Code(s): E11.42 - Type 2 diabetes mellitus with diabetic polyneuropathy; Z79.4 - senior living (current) use of insulin (2) CAD (coronary artery disease) Associated angina: without angina Coronary Disease-Associated Artery/Lesion type: [place] artery [place] vs. transplanted heart: [place] heart Qualified Code(s): I25.10 - Atherosclerotic heart disease of [place] coronary artery without angina pectoris (3) HLD (hyperlipidemia) Hyperlipidemia type: unspecified Qualified Code(s): E78.5 - Hyperlipidemia, unspecified (4) Barretts esophagus Holt's esophagus type: with dysplasia of unspecified degree Qualified Code(s): K22.719 - Holt's esophagus with dysplasia, unspecified; K22.71 - Holt's esophagus with dysplasia (5) Hypertension Hypertension type: essential hypertension Qualified Code(s): I10 - Essential (primary) hypertension
[2022-03-13] MEDS: oxyCODONE HCL IR 5 MG TAB (IMMEDIATE RELEASE) PO PRN (22:32)
[2022-03-14] MEDS: oxyCODONE HCL IR 5 MG TAB (IMMEDIATE RELEASE) PO PRN ×2 (04:29→11:16)
[2022-03-14] MEDS: POLYETHYLENE (MIRALAX) 17 GM PACK PO SCH ×4 (05:41→23:20)
[2022-03-14 07:45] LABS: Basophils # (auto) 0.01 K/uL (0-0.2); Basophils % (auto) 0.1 %; Eosinophils # (auto) 0.02 K/uL (0-0.50); Eosinophils % (auto) 0.2 %; Hematocrit (blood only) 31.5 % (40.1-51.0); Hemoglobin 10.8 g/dl (14.0-18.0); Immature Granulocytes # (auto) 0.05 K/uL (0.00-0.02); Immature Granulocytes % (auto) 0.4 %; Lymphocytes # (auto) 2.29 K/uL (1.2-3.4); Lymphocytes % (auto) 19.9 %; Mean Corpuscular Hemoglobin 30.8 pg (25.0-34.0); Mean Corpuscular Hgb Conc 34.3 g/dL (32.0-36.0); Mean Corpuscular Volume 89.7 fL (80.0-100.0); Mean Platelet Volume 9.8 fL (9.4-12.4); Monocytes # (auto) 1.05 K/uL (0.24-0.82); Monocytes % (auto) 9.1 %; Neutrophils # (auto) 8.11 K/uL (1.4-6.5); Neutrophils % (auto) 70.3 %; Platelet Count 230 K/uL (130-400); RDW Coefficient of Variation 12.7 % (11.5-14.5); RDW Standard Deviation 41.2 fL (36.4-46.3); Red Blood Count 3.51 M/uL (4.63-6.08); White Blood Count 11.53 K/ul (4.8-10.8)
[2022-03-14 08:07] LABS: BUN Creatinine Ratio 22.1 (10-20); Calcium 8.9 mg/dl (8.5-10.1); Creatinine Clr Calc Pharmacy 61.9 ml/min; Est GFR (African American) 66.8 ml/min; Est GFR (Non-African American) 57.6 ml/min; Potassium 4.2 mmol/L (3.5-5.1)
[2022-03-14] MEDS: METOPROLOL SUCC 50MG EXT REL TAB PO SCH (08:52)
[2022-03-14] MEDS: ASPIRIN 81 MG ECTAB PO SCH (08:52)
[2022-03-14] MEDS: amLODIPine BESYLATE 5 MG TAB PO SCH (08:52)
[2022-03-14] MEDS: PANTOprazole 40 MG TAB PO SCH (08:52)
[2022-03-14] MEDS ORDERED: LANTUS PER UNIT CHARGE SQ ONE (09:00)
[2022-03-14] MEDS ORDERED: hydroCHLOROthiazide 25 MG TAB PO SCH (09:00)
[2022-03-14] MEDS ORDERED: lisinopril 40 MG TAB PO SCH (09:00)
[2022-03-14] MEDS ORDERED: FOSINOPRIL SODIUM 10 MG TAB PO SCH (09:00)
[2022-03-14] MEDS: INSULIN ASPART PER UNIT SC SCH ×5 (09:45→21:12)
--- NOTE | 2022-03-14 09:53 | Orthopedic Progress Note ---
Date of Service March 14, 2022 Assessment & Plan (1) Neurogenic claudication due to lumbar spinal stenosis: Plan: At this time initiate physical therapy monitor his CLAUDE operatively discharge home in the next few days. Admission and Anticipated Discharge Date Admission Date: March 13, 2022 Subjective Patient's back pain is controlled leg pain improved Physical Exam Physical Exam: On exam patient sitting up in bed. Is distracted testing. Peers comfortable. Results & Data ([facility]) Vital Signs (Past 12 Hours) Vital Signs Temp Pulse Resp BP BP Pulse Ox O2 Del Method 03/14/22 07:59 37.1 C 56 L 18 150/61 H 98 Room Air 03/14/22 03:50 36.9 C 54 L 18 155/64 H 100 CPAP 03/13/22 23:20 36.6 C 52 L 16 146/69 H 95 Room Air
[2022-03-14] MEDS ORDERED: SODIUM CHLORIDE 0.9% 1000ML 1,000 ML IV SCH (12:41)
[2022-03-14 13:07] LABS: Hematocrit (blood only) 31.4 % (40.1-51.0); Hemoglobin 10.9 g/dl (14.0-18.0); Mean Corpuscular Hemoglobin 31.1 pg (25.0-34.0); Mean Corpuscular Hgb Conc 34.7 g/dL (32.0-36.0); Mean Corpuscular Volume 89.5 fL (80.0-100.0); Mean Platelet Volume 9.8 fL (9.4-12.4); Platelet Count 248 K/uL (130-400); RDW Coefficient of Variation 12.7 % (11.5-14.5); RDW Standard Deviation 41.4 fL (36.4-46.3); Red Blood Count 3.51 M/uL (4.63-6.08); White Blood Count 11.77 K/ul (4.8-10.8)
[2022-03-14 13:35] LABS: Albumin Globulin Ratio 1.9 (0.9-2); Albumin Level 3.7 gm/dl (3.4-5.0); BUN Creatinine Ratio 20.9 (10-20); Bilirubin,Total 0.7 mg/dl (0.2-1.0); Calcium 9.1 mg/dl (8.5-10.1); Creatinine Clr Calc Pharmacy 58.5 ml/min; Est GFR (African American) 62.4 ml/min; Est GFR (Non-African American) 53.9 ml/min; Total Protein 5.7 gm/dl (6.0-8.3)
[2022-03-14] MEDS: ACETAMINOPHEN 500 MG TAB PO PRN ×2 (15:37→23:20)
--- NOTE | 2022-03-14 16:10 | Electrocardiogram Report ---
Test Reason : Blood Pressure : / mmHG Vent. Rate : 057 BPM Atrial Rate : 057 BPM P-R Int : 178 ms QRS Dur : 110 ms QT Int : 444 ms P-R-T Axes : 013 -22 -03 degrees QTc Int : 432 ms Sinus bradycardia Premature atrial complexes Nonspecific T wave abnormality Abnormal ECG When compared with ECG of 22-JUN-2018 17:05, No significant change was found Confirmed by Denis Nj ([id number]) on 03/14/2022 4:10:24 PM Referred By: Gavin Munoz Confirmed By:Denis Nj
[2022-03-14] MEDS: metFORMIN HCL 500 MG TAB PO SCH (18:39)
[2022-03-14] MEDS: traMADol HCL 50 MG TABLET PO PRN (18:51)
[2022-03-14] MEDS: DOCUSATE SODIUM/SENNA 50/8.6MG TAB PO SCH (20:14)
[2022-03-14] MEDS: ATORVASTATIN 10 MG TAB PO SCH (20:15)
--- NOTE | 2022-03-14 22:06 | Hospitalist Progress Note ---
Date of Service March 14, 2022 Assessment & Plan (1) Fusion of spine: Plan: -Patient is afebrile, hemodynamically stable and stable on RA -Management per primary team -Pain control, bowel regimen, anti-emetics (2) Hypertension: Plan: -Hold SUBSTATION OPERATOR CHIEF Fosinopril and hydrochlorothiazide for now to ensure kidney protection and prevent electrolyte abnormalities -Can continue SUBSTATION OPERATOR CHIEF metoprolol and amlodipine as BP has been stable Patient had hypotension and change of mental status, this only lasted minutes. will hold bp meds, and cut back on pain medicine. (3) CAD (coronary artery disease): Plan: -Continue SUBSTATION OPERATOR CHIEF statin -Resume ASA at discretion of surgeon (4) Diabetes: Plan: -Stopped SUBSTATION OPERATOR CHIEF oral antihyperglycemic agents while admitted -Continue the rest of the antihyperglycemic management already ordered -Pharmacy glycemic management consultation paced by primary team (5) Barretts esophagus: Plan: -SUBSTATION OPERATOR CHIEF Pantoprazole (6) HLD (hyperlipidemia): Plan: -SUBSTATION OPERATOR CHIEF statin Plan The patient was discussed withi Dr. Lewis at the time of the consult Admission and Anticipated Discharge Date Admission Date: March 13, 2022 Subjective Patient had a code purple, this occurred in the AM after pain medicine and morning meds were given. Review of Systems Review of Systems: All systems reviewed & are unremarkable except as noted in HPI & below Physical Exam Physical Exam: General: In no acute distress, stated age, well-nourished, good hygiene HEENT: Normocephalic, atraumatic, no scleral icterus, pupils around round, symmetrical, and reactive to light, moist mucus membranes, trachea midline, no thyromegaly Chest/Pulm: No respiratory distress, symmetrical chest expansion, clear breath sounds throughout Cardiac: RRR, no murmurs noted Abdomen: Negative for ascites and bruising, normoactive bowel sounds, soft, non- tender to palpation throughout : Patient with givens cath in place, currently draining clear yellow urine Musculoskeletal: Patient with surgical site currently bandaged and without signs of drainage, drain currently in place and draining a small amount of blood, patient with intact motor function and sensation in the BL LE's Extremities: Radial, dorsalis pedis, and posterior tibial pulses are intact and symmetrical, no edema noted in the BL LE's Skin: Warm, dry, no rashes , lesions, or scars noted Neuro: Alert and oriented to person, place, month, year, and president, no focal defects, CN II-XII tested and intact, finger to nose test negative, no tremors noted Psych: No acute distress, calm and cooperative during the exam Results & Data Results & Data ([facility]) Vital Signs (Past 12 Hours) Vital Signs Temp Pulse Resp BP Pulse Ox O2 Del Method 03/14/22 16:00 37.2 C 62 18 156/68 H 96 Room Air PG Care Time/CCT Total # of Minutes Spent Total Time Spent with Patient: Total time spent is greater than 50% in coordination of care (as documented) at patient's floor/unit and/or counseling patient: Coding Level of Care Code 86504 Subseq Hosp Care Lvl 3 Diagnoses Fusion of spine M43.20 Hypertension I10 Hypertension type: essential hypertension CAD (coronary artery disease) I25.10 Associated angina: without angina Coronary Disease-Associated Artery/Lesion type: [place] artery [place] vs. 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 supervisor use Diabetes mellitus type: type 2 Barretts esophagus K22.719; K22.71 Holt's esophagus type: with dysplasia of unspecified degree HLD (hyperlipidemia) E78.5 Hyperlipidemia type: unspecified Time Spent (min) 35 (1) Diabetes Diabetes mellitus complication detail: with polyneuropathy Diabetes mellitus complication status: with neurologic complications Diabetes mellitus half-way insulin use: with watermelon harvesting supervisor use Diabetes mellitus type: type 2 Qualified Code(s): E11.42 - Type 2 diabetes mellitus with diabetic polyneuropathy; Z79.4 - longterm (current) use of insulin (2) CAD (coronary artery disease) Associated angina: without angina Coronary Disease-Associated Artery/Lesion type: [place] artery [place] vs. transplanted heart: [place] heart Qualified Code(s): I25.10 - Atherosclerotic heart disease of [place] coronary artery without angina pectoris (3) HLD (hyperlipidemia) Hyperlipidemia type: unspecified Qualified Code(s): E78.5 - Hyperlipidemia, unspecified (4) Barretts esophagus Holt's esophagus type: with dysplasia of unspecified degree Qualified Code(s): K22.719 - Holt's esophagus with dysplasia, unspecified; K22.71 - Holt's esophagus with dysplasia (5) Hypertension Hypertension type: essential hypertension Qualified Code(s): I10 - Essential (primary) hypertension
[2022-03-15] MEDS: POLYETHYLENE (MIRALAX) 17 GM PACK PO SCH ×4 (06:05→21:35)
[2022-03-15] MEDS: METOPROLOL SUCC 50MG EXT REL TAB PO SCH ×3 (08:09→17:53)
[2022-03-15] MEDS: metFORMIN HCL 500 MG TAB PO SCH ×2 (08:14→16:52)
[2022-03-15] MEDS: ASPIRIN 81 MG ECTAB PO SCH (08:14)
[2022-03-15] MEDS: ACETAMINOPHEN 500 MG TAB PO PRN (08:14)
[2022-03-15] MEDS: amLODIPine BESYLATE 5 MG TAB PO SCH (08:14)
[2022-03-15] MEDS: PANTOprazole 40 MG TAB PO SCH (08:14)
[2022-03-15] MEDS ORDERED: LANTUS PER UNIT CHARGE SQ SCH (09:00)
[2022-03-15] MEDS: INSULIN ASPART PER UNIT SC SCH ×4 (09:22→23:47)
[2022-03-15 09:26] LABS: Hematocrit (blood only) 30.3 % (40.1-51.0); Hemoglobin 10.5 g/dl (14.0-18.0); Mean Corpuscular Hemoglobin 30.8 pg (25.0-34.0); Mean Corpuscular Hgb Conc 34.7 g/dL (32.0-36.0); Mean Corpuscular Volume 88.9 fL (80.0-100.0); Mean Platelet Volume 9.8 fL (9.4-12.4); Platelet Count 219 K/uL (130-400); RDW Coefficient of Variation 12.8 % (11.5-14.5); RDW Standard Deviation 41.1 fL (36.4-46.3); Red Blood Count 3.41 M/uL (4.63-6.08); White Blood Count 9.47 K/ul (4.8-10.8)
[2022-03-15 09:52] LABS: Calcium 9.1 mg/dl (8.5-10.1); Creatinine Clr Calc Pharmacy 75.5 ml/min; Est GFR (Non-African American) 73.3 ml/min
--- NOTE | 2022-03-15 10:23 | Orthopedic Progress Note ---
Date of Service March 15, 2022 Assessment & Plan (1) Neurogenic claudication due to lumbar spinal stenosis: Plan: At this time we will initiate physical therapy monitor his CLAUDE operatively discharge home in the next day or so. Admission and Anticipated Discharge Date Admission Date: March 13, 2022 Subjective Patient's back pain is controlled leg symptoms improved Physical Exam Physical Exam: Patient is alert and oriented. Has good strength testing. Appears comfortable. Results & Data ([facility]) Vital Signs (Past 12 Hours) Vital Signs Temp Pulse Resp BP Pulse Ox O2 Del Method 03/15/22 07:45 37.1 C 54 L 18 175/74 H 96 Room Air
--- NOTE | 2022-03-15 10:28 | Pharmacy Report ---
Pharmacy Glycemic Short Note 2 - Date of Service March 15, 2022 - Glycemic Short BSG Results (Last 24 hours): 03/14/22 03/14/22 03/14/22 11:59 12:37 12:54 Glucose 138 H POC Glucose 156 H 154 H 03/14/22 03/14/22 03/15/22 17:10 20:51 08:22 Glucose POC Glucose 146 H 115 H 115 H 03/15/22 08:58 Glucose 103 H POC Glucose OUTPATIENT ANTIDIABETIC REGIMEN: * Lantus 22 units SC AM * Metformin 1000 mg PO BID * HbA1c = 7.6% (02/27/22) ASSESSMENT: 03/15/22 * Patient's BSGs yesterday were [phone] mg/dL. Patient received 41 units of insulin (22 units of basal and 19 units of bolus). * Fasting today is 115 mg/dL. * Fastings trending down so reduce basal by 20%. * Resume metformin so loosen Novolog. BACKGROUND * 76 yo M admitted s/p spinal decompression and fusion. Pharmacy has been consulted to assist with inpatient glycemic management. Patient is a type 2 diabetic on insulin and metformin at home. No diet ordered at this time but likely will be once patient reaches floor. * Preoperative fasting BSG was 131 mg/dL, at goal. Postop BSG was 179 mg/dL. Received 8 mg IV dexamethasone intraoperatively. Did not take any Lantus or Metformin this AM. * No ongoing steroids ordered. Will stress home Lantus dose x 1 today to cover steroids. Reassess basal in the AM. Novolog based on weight/stress of 3. Targeting tighter goal range to prevent postop infection and promote wound healing. PLAN FOR INPATIENT GLYCEMIC CONTROL: * Hold outpatient oral diabetes medications * Basal insulin * Lantus 18 units SQ daily * Bolus insulin * NovoLog per scale ACHS or Q6hrs while NPO * Goal Range: Low 110 mg/dL - High 140 mg/dL * Correction Factor: 20 mg/dL/unit * Nutritional / Prandial insulin per carb ratio of 1 unit per 7 grams CHO consumed
[2022-03-15] MEDS: traMADol HCL 50 MG TABLET PO PRN ×2 (10:58→16:51)
--- NOTE | 2022-03-15 21:31 | Hospitalist Progress Note ---
Date of Service March 15, 2022 Assessment & Plan (1) Fusion of spine: Plan: -Patient is afebrile, hemodynamically stable and stable on RA -Management per primary team -Pain control, bowel regimen, anti-emetics (2) Hypertension: Plan: -Hold COIL CONNECTOR REPAIRER Fosinopril and hydrochlorothiazide for now to ensure kidney protection and prevent electrolyte abnormalities -Can continue COIL CONNECTOR REPAIRER metoprolol and amlodipine as BP has been stable BP has risen today,. will resume DIURETIC, continue Beta es and amlodipine Given patient is diabetic, may benefit more from francisco javier inhibitor than diuretic. (3) CAD (coronary artery disease): Plan: -Continue COIL CONNECTOR REPAIRER statin -Resume ASA at discretion of surgeon (4) Diabetes: Plan: -Stopped COIL CONNECTOR REPAIRER oral antihyperglycemic agents while admitted -Continue the rest of the antihyperglycemic management already ordered -Pharmacy glycemic management consultation paced by primary team (5) Barretts esophagus: Plan: -COIL CONNECTOR REPAIRER Pantoprazole (6) HLD (hyperlipidemia): Plan: -COIL CONNECTOR REPAIRER statin Plan The patient was discussed withi Dr. Lewis at the time of the consult Admission and Anticipated Discharge Date Admission Date: March 13, 2022 Subjective Patient reports no new symptoms today.He states he is feeling well. Review of Systems Review of Systems: All systems reviewed & are unremarkable except as noted in HPI & below Physical Exam Physical Exam: General: In no acute distress, stated age, well-nourished, good hygiene HEENT: Normocephalic, atraumatic, no scleral icterus, pupils around round, symmetrical, and reactive to light, moist mucus membranes, trachea midline, no thyromegaly Chest/Pulm: No respiratory distress, symmetrical chest expansion, clear breath sounds throughout Cardiac: RRR, no murmurs noted Abdomen: Negative for ascites and bruising, normoactive bowel sounds, soft, non- tender to palpation throughout : Patient with givens cath in place, currently draining clear yellow urine Musculoskeletal: Patient with surgical site currently bandaged and without signs of drainage, drain currently in place and draining a small amount of blood, patient with intact motor function and sensation in the BL LE's Extremities: Radial, dorsalis pedis, and posterior tibial pulses are intact and symmetrical, no edema noted in the BL LE's Skin: Warm, dry, no rashes , lesions, or scars noted Neuro: Alert and oriented to person, place, month, year, and president, no focal defects, CN II-XII tested and intact, finger to nose test negative, no tremors noted Psych: No acute distress, calm and cooperative during the exam Results & Data Results & Data ([facility]) Vital Signs (Past 12 Hours) Vital Signs Temp Pulse Resp BP Pulse Ox 03/15/22 16:55 36.8 C 73 18 179/65 H 93 PG Care Time/CCT Total # of Minutes Spent Total Time Spent with Patient: Total time spent is greater than 50% in coordination of care (as documented) at patient's floor/unit and/or counseling patient: Coding Level of Care Code 61402 Subseq Hosp Care Lvl 2 Diagnoses Fusion of spine M43.20 Hypertension I10 Hypertension type: essential hypertension CAD (coronary artery disease) I25.10 Associated angina: without angina Coronary Disease-Associated Artery/Lesion type: [place] artery [place] vs. transplanted heart: [place] heart Diabetes E11.42; Z79.4 Diabetes mellitus complication detail: with polyneuropathy Diabetes mellitus complication status: with neurologic complications Diabetes mellitus fci insulin use: with watermaster use Diabetes mellitus type: type 2 Barretts esophagus K22.719; K22.71 Holt's esophagus type: with dysplasia of unspecified degree HLD (hyperlipidemia) E78.5 Hyperlipidemia type: unspecified (1) Diabetes Diabetes mellitus complication detail: with polyneuropathy Diabetes mellitus complication status: with neurologic complications Diabetes mellitus fci insulin use: with fci use Diabetes mellitus type: type 2 Qualified Code(s): E11.42 - Type 2 diabetes mellitus with diabetic polyneuropathy; Z79.4 - watermaster (current) use of insulin (2) CAD (coronary artery disease) Associated angina: without angina Coronary Disease-Associated Artery/Lesion type: [place] artery [place] vs. transplanted heart: [place] heart Qualified Code(s): I25.10 - Atherosclerotic heart disease of [place] coronary artery without angina pectoris (3) HLD (hyperlipidemia) Hyperlipidemia type: unspecified Qualified Code(s): E78.5 - Hyperlipidemia, unspecified (4) Barretts esophagus Holt's esophagus type: with dysplasia of unspecified degree Qualified Code(s): K22.719 - Holt's esophagus with dysplasia, unspecified; K22.71 - Holt's esophagus with dysplasia (5) Hypertension Hypertension type: essential hypertension Qualified Code(s): I10 - Essential (primary) hypertension
[2022-03-15] MEDS: DOCUSATE SODIUM/SENNA 50/8.6MG TAB PO SCH (21:35)
[2022-03-15] MEDS: ATORVASTATIN 10 MG TAB PO SCH (21:36)
[2022-03-16] MEDS: traMADol HCL 50 MG TABLET PO PRN ×4 (02:20→22:22)
[2022-03-16] MEDS: POLYETHYLENE (MIRALAX) 17 GM PACK PO SCH ×4 (06:51→23:27)
[2022-03-16] MEDS: INSULIN ASPART PER UNIT SC SCH ×4 (08:42→20:29)
[2022-03-16] MEDS: PANTOprazole 40 MG TAB PO SCH (08:44)
[2022-03-16] MEDS: amLODIPine BESYLATE 5 MG TAB PO SCH (08:44)
[2022-03-16] MEDS: metFORMIN HCL 500 MG TAB PO SCH ×2 (08:44→17:46)
[2022-03-16] MEDS: ASPIRIN 81 MG ECTAB PO SCH (08:44)
[2022-03-16] MEDS: METOPROLOL SUCC 50MG EXT REL TAB PO SCH (08:44)
[2022-03-16] MEDS ORDERED: LANTUS PER UNIT CHARGE SQ SCH (09:00)
[2022-03-16] MEDS ORDERED: hydroCHLOROthiazide 25 MG TAB PO SCH (09:00)
[2022-03-16] MEDS: LANTUS PER UNIT CHARGE SQ SCH (09:08)
--- NOTE | 2022-03-16 10:24 | Hospitalist Progress Note ---
Date of Service March 16, 2022 Assessment & Plan (1) Urinary retention: Plan: -Secondary to ? BPH v. meds -Givens replaced, maintain for now-failed removal once this hospitalization -Added Flomax -Urology consult (2) Fusion of spine: Plan: -POD#3 -Management per primary team -Pain control, bowel regimen, anti-emetics -Incentive spirometer use q1h wa for atelectasis/pna prevention (3) Hypertension: Plan: -Hold Fosinopril and hydrochlorothiazide for now to ensure kidney protection and prevent electrolyte abnormalities -Can continue metoprolol and amlodipine as BP has been stable -BP now has been accelerated the past two days following hypotensive episode on Sat 03/14 -Resumed HCTZ, if BP still accelerated, can resume CANDY as well (4) CAD (coronary artery disease): Plan: -Continue statin -Resume ASA at discretion of surgeon (5) Diabetes: Plan: -Stopped oral antihyperglycemic agents while admitted -Continue the rest of the antihyperglycemic management already ordered -Pharmacy glycemic management consultation paced by primary team (6) Barretts esophagus: Plan: -Continue pantoprazole (7) HLD (hyperlipidemia): Plan: -Continue statin Plan From a medical standpoint, pt is doing well other than his issue of urinary retention. At this point, I would start Flomax and maintain givens with a f/u in the urology office for a voiding trial. Can change to a leg bag when ready for d/c. Pain medications could be playing a role. Urology consulted, appreciate assistance. BP meds resumed. No other recommendations at this time. Will sign off but please feel free to reconsult if any needs arise. Will continue to do daily chart checks. Plan to be d/w Dr. Craft. Admission and Anticipated Discharge Date Admission Date: March 13, 2022 Subjective Patient seen on daily rounds this morning. He is resting in bed, no new complaints/concerns. He is pod#3 from lumbar decompression and fusion w/ Dr. Munoz. He reported that he was having issue with urinary retention over the weekend and had to have his catheter put back in. He has had this occur in the past with urinary retention following back surgery but never to this extent. He is not established with urology and does not take any meds for urinary retention/enlarged prostate. He notes that his back pain is adequately controlled, has some residual pain radiating down his right leg. Feels that his leg weakness has improved. No chest pain or dyspnea. Review of Systems Review of Systems: All systems reviewed and are unremarkable except as noted in HPI and below. Denies fever, chills, fatigue, headache, nasal congestion, sore throat, cough, chest pain, shortness of breath, palpitations, orthopnea, PND, abdominal pain, n/v/d, constipation, dysuria, hematuria, frequency, joint pain or swelling, easy bruising or bleeding, skin lesions or rashes. Physical Exam Physical Exam: GENERAL: 76 yo Well-developed, well-nourished WM. NAD. LUNGS: Clear to auscultation bilaterally. No accessory muscle use. No W/R/R. CARDIOVASCULAR: Regular rate and rhythm. No M/G/R. No JVD. ABDOMEN: Soft, non-tender and non-distended. BS normoactive x 4 quad. : givens catheter, pink urine noted in tubing EXTREMITIES: No edema. Non-tender. Peripheral pulses +2/4. NEUROLOGIC: A&O x3. Nonfocal. PSYCHIATRIC: Cooperative. Appropriate mood and affect. SKIN: Warm, dry, intact. Back incision dressed. CLAUDE drain visualized. Results & Data Results & Data ([facility]) Vital Signs (Past 12 Hours) Vital Signs Temp Pulse Pulse Resp BP Pulse Ox O2 Del Method 03/16/22 08:49 37.0 C 62 19 175/81 H 95 Room Air 03/15/22 23:04 36.9 C 68 18 179/80 H 94 Room Air Laboratory Results 03/15/22 08:58 03/15/22 08:58 PG Care Time/CCT Total # of Minutes Spent Total Time Spent with Patient: Total time spent is greater than 50% in coordination of care (as documented) at patient's floor/unit and/or counseling patient: Coding Level of Care Code 88646 Subseq Hosp Care Lvl 2 Diagnoses Urinary retention R33.9 Fusion of spine M43.20 Hypertension I10 Hypertension type: essential hypertension CAD (coronary artery disease) I25.10 Associated angina: without angina Coronary Disease-Associated Artery/Lesion type: [place] artery [place] vs. transplanted heart: [place] heart Diabetes E11.42; Z79.4 Diabetes mellitus complication detail: with polyneuropathy Diabetes mellitus complication status: with neurologic complications Diabetes mellitus manager intermediate insulin use: with manager intermediate use Diabetes mellitus type: type 2 Barretts esophagus K22.719; K22.71 Holt's esophagus type: with dysplasia of unspecified degree HLD (hyperlipidemia) E78.5 Hyperlipidemia type: unspecified (1) Diabetes Diabetes mellitus complication detail: with polyneuropathy Diabetes mellitus complication status: with neurologic complications Diabetes mellitus manager intermediate insulin use: with manager intermediate use Diabetes mellitus type: type 2 Qualified Code(s): E11.42 - Type 2 diabetes mellitus with diabetic polyneuropathy; Z79.4 - terminal makeup operator (current) use of insulin (2) CAD (coronary artery disease) Associated angina: without angina Coronary Disease-Associated Artery/Lesion type: [place] artery [place] vs. transplanted heart: [place] heart Qualified Code(s): I25.10 - Atherosclerotic heart disease of [place] coronary artery without angina pectoris (3) HLD (hyperlipidemia) Hyperlipidemia type: unspecified Qualified Code(s): E78.5 - Hyperlipidemia, unspecified (4) Barretts esophagus Holt's esophagus type: with dysplasia of unspecified degree Qualified Code(s): K22.719 - Holt's esophagus with dysplasia, unspecified; K22.71 - Holt's esophagus with dysplasia (5) Hypertension Hypertension type: essential hypertension Qualified Code(s): I10 - Essential (primary) hypertension
--- NOTE | 2022-03-16 11:26 | Urology Consultation ---
Date of Consultation March 16, 2022 Assessment & Plan (1) Urinary retention: - Urology consulted for urinary retention - Pt POD#3 s/p spinal decompression and fusion - Urinary retention likely multifactorial in setting of recent surgery, medications, constipation, and underlying BPH - Maintain Churchill 7-10 days - Continue Flomax - Continue bowel regimen - Will arrange outpatient follow-up with our service for voiding trial - will sign off History of Present Illness Reason for Consultation: Urinary retention Requesting Physician: Dr. Craft Attending Physician: Gavin Munoz, DO History of Present Illness 76 yo M with past medical history of CAD, hypertension, hyperlipidemia, sleep apnea, Barretts esophagus, and neurogenic claudication due to lumbar spinal stenosis admitted for scheduled spinal decompression and fusion. Patient with lumbar spinal stenosis with radiculopathy was admitted for his scheduled surgery performed by Dr. Munoz on 03/13/22. He is POD #3 s/p removal of L3-L5 instrumentation as well as decompression and fusion and placement of Spira cage and autograft. Per notes, surgery went well with no immediate complications identified. Churchill catheter was removed on POD #1. After Churchill was removed, he had elevated bladder scans/post void residuals and required straight catheterization x 2. Churchill catheter was replaced on 03/15/22. He was started on Tamsulosin. Urology consulted for evaluation of urinary retention. Chart review: Remains afebrile. Lab work on 03/15/22 reviewed - creatinine 1.00, WBC 9.47, Hgb 10.5. Patient seen at bedside. He is awake and resting in bed, appears comfortable. Subjectively doing well, recovering from surgery. Churchill intact and draining clear yellow urine in tubing, collection bag with pink-tinged urine. Tolerating Churchill. He notes that he had episodes of urinary retention after his prior spine surgeries in the past, which resolved after 1 straight catheterization. He is passing gas, but no bowel movements since surgery. No nausea or vomiting. No fever or chills. No prior urinary/prostate medications at baseline. Has never seen a urologist. Endorses some urinary hesitancy and weaker stream at baseline, but feels like he empties his bladder fairly well with time. No nocturia or incontinence. No dysuria or hematuria. No personal or family hx of malignancy. He reports that his PCP checks his PSA. Offers no additional complaints at this time. Allergies Allergy/AdvReac Type Severity Reaction Status Date / Time empagliflozin AdvReac Joint Pain Verified 03/13/22 06:05 [From Jardiance] pregabalin [From Lyrica] AdvReac Joint Pain Verified 03/13/22 06:06 Home Medications Medication Instructions Recorded Confirmed Type nitroglycerin 0.4 mg sublingual 0.4 mg sublingual DIRECTED PRN 06/19/18 03/13/22 History tablet Chest Pain acetaminophen 325 mg tablet (Mapap 650 mg PO Q4H PRN pain #30 tabs 06/23/18 03/13/22 Rx (acetaminophen)) amlodipine 5 mg tablet (Norvasc) 5 mg PO QAM #30 tabs 06/23/18 03/13/22 Rx aspirin 81 mg tablet,delayed 81 mg PO QAM 02/25/22 03/13/22 History release atorvastatin 10 mg tablet 10 mg PO PM 02/25/22 03/13/22 History fosinopril 40 mg tablet 40 mg PO QAM 02/25/22 03/13/22 History hydrochlorothiazide 25 mg tablet 12.5 mg PO QAM 02/25/22 03/13/22 History insulin glargine 100 unit/mL 22 unit subcut QAM 02/25/22 03/13/22 History subcutaneous solution (Lantus U-100 Insulin) metformin 1,000 mg tablet 1,000 mg PO BID 02/25/22 03/13/22 History metoprolol succinate 25 mg 50 mg PO QAM 02/25/22 03/13/22 History tablet,extended release 24 hr pantoprazole 40 mg tablet,delayed 40 mg PO QAM 02/25/22 03/13/22 History release oxycodone 5 mg tablet 5 mg PO Q6H PRN pain, severe #30 03/14/22 Rx tabs tramadol 50 mg tablet 50 mg PO Q6H PRN pain, moderate 03/14/22 Rx #30 tabs Patient History Medical History Barretts esophagus CAD (coronary artery disease) 2005. Stents x 2 to LAD 07/2005> follows with Dr. Weaver at [facility] Diabetes mellitus treated with insulin and oral medication Diabetic macular edema gets injections every 6-8 weeks Diabetic neuropathy feet, legs, hands Diabetic retinopathy gets injections every 6-8 weeks Difficult intubation s/p cervical spine fusion with limited ROM, h/o glidescope intubation GERD (gastroesophageal reflux disease) controlled, stable per pt Hyperlipidemia Hypertension controlled, stable per pt Sleep apnea On CPAP-compliant Surgical History History of appendectomy History of arthroscopy right knee History of carpal tunnel release right History of cholecystectomy History of colonoscopy History of esophagogastroduodenoscopy (EGD) History of excision of pilonidal cyst History of heart artery stent 2005; stents x 2 History of tonsillectomy History of tooth extraction Hx of vasectomy S/P cervical spinal fusion LIMITED ROM ALL DIRECTIONS S/P ERCP 06/20/18: Grade 1 view, glidescope 3, ETT 8. S/P lumbar fusion X2 total Glidescope #3 used with gr I view Family History Daughter Multiple sclerosis Father Diabetes Aunt Diabetes Uncle Diabetes Brother Diabetes Social History Smoking Status: Never smoker Second Hand Exposure: No; Do You Dip or Chew Tobacco: No; Tobacco Cessation Education Requested by Patient: No Hx Alcohol Use: No Hx Substance Use: No Preferred Language: Nepali Communication Ability: Effective Airline Managerial Supervisor Required: No Beliefs That Will Affect Care: None Current Living Situation: Spouse Current Living Situation Comment: Lives at home with ; states daughter, RN, lives 6 miles away to help Other Information That Helps Us Care for You: No Feels Safe at Home: Yes Safety Concerns: Feels Safe At This Time Assistive Devices: Walker Review of Systems Review of Systems: All systems reviewed & are unremarkable except as noted in HPI & below Physical Exam Constitutional: well developed and well nourished; no acute distress and not ill appearing Eyes: no scleral abnormality Neck: normal visual inspection Respiratory: normal respiratory effort and able to speak in complete sentences; no respiratory distress and no labored breathing Cardiovascular: Extremities: no pedal edema Gastrointestinal (Abdomen): Inspection/Auscultation: abdomen normal to inspection; abdomen not distended Percussion/Palpation: abdomen soft; abdomen nontender Musculoskeletal: Head/Neck/Chest: normocephalic and head atraumatic Neurologic: moves all extremities and awake Psychiatric: Orientation: alert, oriented x 3 and cooperative Eye Contact: good eye contact Genitourinary: Churchill intact and draining clear yellow urine in tubing Results & Data ([facility]) Vital Signs (Past 12 Hours) Vital Signs Temp Pulse Resp BP Pulse Ox O2 Del Method 03/16/22 08:49 37.0 C 62 19 175/81 H 95 Room Air PG Care Time/CCT Total # of Minutes Spent Total Time Spent with Patient: Total time spent is greater than 50% in coordination of care (as documented) at patient's floor/unit and/or counseling patient: Coding Level of Care Code 14036 Initial Inpt Care Lvl 2 Diagnoses Urinary retention R33.9
--- NOTE | 2022-03-16 12:37 | Orthopedic Progress Note ---
Date of Service March 16, 2022 Assessment & Plan (1) Neurogenic claudication due to lumbar spinal stenosis: Plan: This time we will continue physical therapy monitor his CLAUDE output anticipate discharge home tomorrow possibly with his Churchill in place and follow-up with urology. Admission and Anticipated Discharge Date Admission Date: March 13, 2022 Subjective Back pain controlled leg symptoms improved. He does have a Churchill in place secondary to urinary retention. Physical Exam Physical Exam: On exam is in bed. He is comfortable. Is good strength testing. Results & Data ([facility]) Vital Signs (Past 12 Hours) Vital Signs Temp Pulse Resp BP Pulse Ox O2 Del Method 03/16/22 08:49 37.0 C 62 19 175/81 H 95 Room Air
[2022-03-16] MEDS: DOCUSATE SODIUM/SENNA 50/8.6MG TAB PO SCH (20:31)
[2022-03-16] MEDS: ATORVASTATIN 10 MG TAB PO SCH (20:34)
[2022-03-17] MEDS: ACETAMINOPHEN 500 MG TAB PO PRN (01:24)
[2022-03-17] MEDS: POLYETHYLENE (MIRALAX) 17 GM PACK PO SCH ×2 (06:25→10:54)
[2022-03-17] MEDS: traMADol HCL 50 MG TABLET PO PRN ×2 (07:29→12:33)
[2022-03-17] MEDS: metFORMIN HCL 500 MG TAB PO SCH (08:05)
[2022-03-17] MEDS: ASPIRIN 81 MG ECTAB PO SCH (08:05)
[2022-03-17] MEDS: amLODIPine BESYLATE 5 MG TAB PO SCH (08:06)
[2022-03-17] MEDS: METOPROLOL SUCC 50MG EXT REL TAB PO SCH (08:06)
[2022-03-17] MEDS: PANTOprazole 40 MG TAB PO SCH (08:06)
[2022-03-17] MEDS: INSULIN ASPART PER UNIT SC SCH ×2 (08:20→11:34)
[2022-03-17] MEDS: LANTUS PER UNIT CHARGE SQ SCH (08:59)
[2022-03-17] MEDS ORDERED: hydroCHLOROthiazide 25 MG TAB PO SCH (09:00)
[2022-03-17] MEDS ORDERED: lisinopril 40 MG TAB PO SCH (09:00)
--- NOTE | 2022-03-27 10:29 | Discharge Summary ---
Date of Service March 27, 2022 Admission HPI Per Admitting Provider This is a 76-year-old male who presents with current persistent back and leg pain. Failed course of nonoperative care is here for surgical intervention. Discharge Data Consultations 03/13/22 11:30 Consult Hospitalist Routine 03/16/22 10:16 Consult Urology Routine Procedures Performed Operation Date: 03/13/22 07:30 Actual Procedures p L2-L3 Decompression and Fusion, Spinal Cord Monitoring(Not Applicable) - Gavin Munoz DO s L3-L5 Hardware Removal, (Not Applicable) - Gavin Munoz DO Hospital Course (1) Neurogenic claudication due to lumbar spinal stenosis: Patient is 76-year-old male history physical examination and radiographic images consistent with the above diagnosis. For this reason is brought to the operating room on 03/13/2022 and undergone a removal of previous instrumentation from L3-L5 lumbar decompression and L2-3 with instrumented fusion. This performed by Dr. Munoz under general esthesia. He tolerated the procedure well. Is transferred PACU in stable condition. He is placed on GI and DVT prophylaxis. He was then transferred the orthopedic floor. The Churchill catheter is removed we will need urinary retention Churchill catheter was replaced urology recommended discharge with the catheter. Throughout his hospital course his calves remained supple nontender his abdomen remained soft and nontender. On 03/17/2022 he is deemed safe for home discharge. He was to change dressing once daily until there is no drainage. He was avoid any full bending at the waist and should not lift anything heavier than 5 to 7 pounds he was to follow-up with urology for his catheter and urinary retention as well. He was follow-up with our office approximately 2 weeks out from surgery or sooner if he develops any fevers increased drainage or uncontrolled pain.
== END 2022-03-17 13:30 | disposition home or self-care (01) | DRG 455 ==
LOC: ASU 05:42 → PACUINP 09:53 → 3N 14:12

== ENCOUNTER 2022-08-27 07:53 | Observation (INO) ==
--- NOTE | 2022-08-25 10:14 | Anesthesiology Consultation ---
Date of Service August 25, 2022 Assessment & Plan (1) Encounter for pre-operative examination: Plan - check BSG am DOS. - I contacted pt who states that chest discomfort, shortness of breath and dyspnea fully resolved since hospitalization. Case discussed in detail with Dr. Vences who advised pt is acceptable to proceed from his standpoint at current status. - discharge summary [facility] 07/20/22-07/22/22: "...several weeks of intermittent chest pressure along with progressive shortness of breath and dyspnea on exertion. Underwent ECHO and stress testing which did not show any signs of ischemia. Patient was evaluated by Cardiology who recommended Zio monitor for 21 days and follow up with Cardiology in 1 month..." pt has cardiology appt 09/10/22. - difficult intubation: s/p cervical spine fusion with limited ROM, h/o glidescope intubation. - COVID screening: Per regional climate change analyst on 08/24/2022: Travel screen negative, no known COVID-19 positive contacts or current COVID-19 related symptoms in past 2 weeks. To surgeon's discretion if preop COVID testing is needed. Chart Review Chart Review: Acceptable Risk for Surgery and Patient NOT seen in Pre Admission Testing History Surgery Operation Date: 08/27/22 09:30 Proposed Procedures p TURP (Transurethral Resection of the Prostate) - Quentin Kline, Height/Weight Height: 5 ft 11 in Weight: 92.986 kg Allergies Allergy/AdvReac Type Severity Reaction Status Date / Time tamsulosin [From Flomax] Allergy Severe Difficulty Verified 08/24/22 13:51 Breathing empagliflozin AdvReac Mild Joint Pain Verified 08/24/22 13:51 [From Jardiance] pregabalin [From Lyrica] AdvReac Mild Joint Pain Verified 08/24/22 13:51 Medications Home Medications Medication Instructions Recorded Confirmed Last Taken nitroglycerin 0.4 mg sublingual 0.4 mg sublingual DIRECTED PRN 06/19/18 08/27/22 Unknown tablet Chest Pain acetaminophen 325 mg tablet (Mapap 650 mg PO Q4H PRN pain #30 tabs 06/23/18 08/27/22 03/12/22 19:30 (acetaminophen)) amlodipine 5 mg tablet (Norvasc) 5 mg PO QAM #30 tabs 06/23/18 08/27/22 08/27/22 05:30 aspirin 81 mg tablet,delayed 81 mg PO QAM 02/25/22 08/27/22 08/24/22 08:00 release atorvastatin 10 mg tablet 10 mg PO PM 02/25/22 08/27/22 08/26/22 17:00 fosinopril 40 mg tablet 40 mg PO QAM 02/25/22 08/27/22 08/26/22 08:00 hydrochlorothiazide 25 mg tablet 12.5 mg PO QAM 02/25/22 08/27/22 08/26/22 08:00 insulin glargine 100 unit/mL 22 unit subcut QA 02/25/22 08/27/22 08/26/22 08:00 subcutaneous solution (Lantus U-100 Insulin) metformin 1,000 mg tablet 1,000 mg PO BID 02/25/22 08/27/22 08/25/22 20:00 metoprolol succinate 25 mg 50 mg PO QA 02/25/22 08/27/22 08/27/22 05:30 tablet,extended release 24 hr pantoprazole 40 mg tablet,delayed 40 mg PO M 02/25/22 08/27/22 08/27/22 05:30 release cholecalciferol (vitamin D3) 25 50 mcg PO TID 08/24/22 08/27/22 08/26/22 23:00 mcg (1,000 unit) tablet finasteride 5 mg tablet 5 mg PO PM 08/24/22 08/27/22 08/26/22 17:00 Active Medications Generic Name Dose Route Start Last Admin Trade Name Freq PRN Reason Stop Dose Admin Lactated Ringer's 1,000 mls @ 15 mls/hr 08/27/22 06:00 08/27/22 08:41 Lr IV 08/28/22 05:59 15 mls/hr .Q24H DENNISE Administration Past Medical History Medical History Barretts esophagus CAD (coronary artery disease) 2005. Stents x 2 to LAD 07/2005> follows with Dr. Weaver at [facility] Diabetes mellitus treated with insulin and oral medication Diabetic macular edema gets injections every 6-8 weeks Diabetic neuropathy feet, legs, hands Diabetic retinopathy gets injections every 6-8 weeks Difficult intubation s/p cervical spine fusion with limited ROM, h/o glidescope intubation GERD (gastroesophageal reflux disease) controlled, stable per pt History of blood transfusion History of kidney infection resolved after doxycycline treatment Hyperlipidemia Hypertension controlled, stable per pt Kidney stones passed on own Neurogenic claudication due to lumbar spinal stenosis Sleep apnea On CPAP-compliant Past Family History Family History Daughter Multiple sclerosis Father Diabetes Aunt Diabetes Uncle Diabetes Brother Diabetes Past Surgical History Surgical History History of appendectomy History of arthroscopy right knee History of carpal tunnel release right History of cholecystectomy History of colonoscopy History of esophagogastroduodenoscopy (EGD) History of excision of pilonidal cyst History of heart artery stent 2005; stents x 2 History of tonsillectomy History of tooth extraction Hx of vasectomy S/P cervical spinal fusion LIMITED ROM ALL DIRECTIONS S/P ERCP 06/20/18: Grade 1 view, glidescope 3, ETT 8. S/P lumbar fusion X3 total Glidescope #3 used with gr I view #1 removal of instrumentation L3-L5. #2 exploration of fusion L3-L5. #3 lumbar decompression bilateral medial facetectomies and foraminotomies L1-L2 L2-L3. #4 posterior spinal fusion L2-L3. #5 placement posterior instrumentation L2-L3. #6 interbody fusion L2-L3. #7 placement of Spira 9 x 26 mm cage at L2-L3. #8 placement locally harvested morselized autograft in the posterior gutters. #9 placement of I factor model V toss in the interbody space and posterior lateral gutters. Social History Smoking Status: Never smoker Do You Dip or Chew Tobacco: No Hx Alcohol Use: No Hx Substance Use: No substance use type: does not use Physical Exam Vital Signs Last Vital Signs Temp 36.8 C 08/27/22 08:26 Pulse 63 08/27/22 08:26 Resp 20 08/27/22 08:26 BP 160/65 H 08/27/22 08:26 Pulse Ox 100 08/27/22 08:26 O2 Del Method 08/27/22 08:26 Lab Results Anesthesia Preop Results Results Anesthesia Widget: WBC 5.59 K/ul (4.8-10.8) 08/27/22 Hgb 11.2 g/dl (14.0-18.0) L 08/27/22 Hct 32.6 % (42.0-52.0) L 08/27/22 Plt 250 K/uL (130-400) 08/27/22 Na 139 mmol/L (136-145) 08/11/22 K 4.8 mmol/L (3.5-5.1) 08/11/22 Cl 107 mmol/L (98-107) 08/11/22 CO2 27 mmol/L (21-32) 08/11/22 BUN 28 mg/dL H 08/11/22 Creat 1.3 mg/dL (0.6-1.4) 08/11/22 Glucose Level 270 mg/dL H 08/11/22 POC Glucose 117 mg/dl (70-99) H 08/27/22 SARS-CoV-2, RNA, NAAT NEGATIVE (NEGATIVE) 08/27/22 Testing Laboratory Results 08/27/22 09:20 08/27/22 08:15 POC Glucose 117 H Electrocardiogram Date: 07/20/22 NSR with sinus arrhythmia, rate 71 bpm Nonspecific T wave abnormality Chest X-Ray Date: 07/20/22 *1view* No air bronchograms or focal consolidation identified Echocardiogram Date: 07/21/22 EF 55-59% Grade I diastolic dysfunction Borderline cLVH Non-dilated cardiac chambers Mild aortic valve sclerosis Trace to mild aortic insufficiency Mildly enlarged aortic root 4 cm Proximal ascending thoracic aorta mildly enlarged 4 cm Stress Test Date: 07/22/22 Pharmacologic MPHR 74% Negative EF 57% Other Testing Abdomen pelvis CT 06/18/22 Lung bases: The heart is enlarged and without pericardial effusion. The coronary arteries are densely calcified. There is a small hiatal hernia. A 4 mm pulmonary nodule at the left lung base seen on image #61. The lung bases are otherwise clear. Liver: The contrast-enhanced liver is normal in size, contour, and attenuation. There is minimal central intrahepatic biliary ductal dilatation. The hepatic veins and portal veins are patent. Pneumobilia suggests previous sphincterotomy. Gallbladder: Surgically absent and clips in the gallbladder fossa. Pancreas: Moderately atrophic and grossly unremarkable. Kidneys and ureters: The contrast enhanced kidneys are normal in size and without hydronephrosis. No renal calculi are identified on the unenhanced series and there is no ureteral stone. The kidneys enhance and excrete symmetrically. No enhancing renal cortical mass lesion is identified. A 9 mm complex/hyperdense cyst is incidentally noted in the interpolar right kidney. Additional subcentimeter cortical hypodensities also likely represent cysts but are too small for definitive characterization. There is no evidence of urothelial lesion within the renal pelvis bilaterally or along the course of either ureter. Abdominal vasculature: The abdominal aorta is normal in course and caliber noting moderate to advanced atherosclerotic calcification. Bowel: There is moderate sigmoid diverticulosis without CT evidence of acute diverticulitis. No bowel obstruction is seen. Fecal retention is noted throughout the colon. Duodenal diverticula are noted. The appendix is not identified and reported surgically absent. Peritoneum: There is no intraperitoneal free air or abdominal ascites. There is a fat-containing umbilical hernia. Pelvic viscera: The prostate gland is enlarged and heterogeneous noting median lobe hypertrophy. The bladder wall is thickened and trabeculated indicating chronic outlet obstruction. There is a small fat-containing left inguinal hernia. Skeletal structures: The skeletal structures are osteopenic. There is advanced lumbosacral spondylosis with evidence of multilevel lumbar spinal fusion. No lytic or blastic lesions are seen. IMPRESSION: 1. Unremarkable CT urogram assessment of the kidneys and ureters. 2. Prostatomegaly with evidence of chronic bladder outlet obstruction. 3. Colonic diverticulosis without CT evidence of acute diverticulitis. 4. Cardiomegaly. 5. There is a 4 mm left basilar pulmonary nodule. This is indeterminant, and follow-up with a dedicated chest CT in 3-4 months time is recommended for reevaluation and for full assessment of the thorax. 6. Additional findings as above.
[~2022-08-27 07:53] MED LIST: LR 15ML/HR IV SCH; ceFAZolin 2000MG 2,000 MG/15 ML SYR IV SCH
--- NOTE | 2022-08-27 08:34 | History & Physical Report ---
Date of Service August 27, 2022 Assessment & Plan (1) Arm pain: (2) Urinary retention: Plan Risks and benefits discussed at length for procedure. These include bleeding, infection, injury to surrounding tissues or organs, and risks associated with anesthesia. Patient states understanding and agrees to proceed. Will sign consent and proceed. Plan for cystoscopy and transurethral resection of prostate. Likely observation overnight with CBI. History of Present Illness Primary Care Provider: Cortez Root Patient here for procedure. No changes in medical issues. No major changes in urinary issues. Continued issues and concerns. No change in pain or discomfort. No severe fevers or chills. No chest pain or shortness of breath. Risks and benefits discussed at length for procedure. These include bleeding, infection, injury to surrounding tissues or organs, and risks associated with anesthesia. Patient and/or family states understanding and agrees to proceed. Consent and supporting information completed. Allergies Allergy/AdvReac Type Severity Reaction Status Date / Time tamsulosin [From Flomax] Allergy Severe Difficulty Verified 08/24/22 13:51 Breathing empagliflozin AdvReac Mild Joint Pain Verified 08/24/22 13:51 [From Jardiance] pregabalin [From Lyrica] AdvReac Mild Joint Pain Verified 08/24/22 13:51 Home Medications Medication Instructions Recorded Confirmed Type nitroglycerin 0.4 mg sublingual 0.4 mg sublingual DIRECTED PRN 06/19/18 08/27/22 History tablet Chest Pain acetaminophen 325 mg tablet (Mapap 650 mg PO Q4H PRN pain #30 tabs 06/23/18 08/27/22 Rx (acetaminophen)) amlodipine 5 mg tablet (Norvasc) 5 mg PO QAM #30 tabs 06/23/18 08/27/22 Rx aspirin 81 mg tablet,delayed 81 mg PO QAM 02/25/22 08/27/22 History release atorvastatin 10 mg tablet 10 mg PO PM 02/25/22 08/27/22 History fosinopril 40 mg tablet 40 mg PO QAM 02/25/22 08/27/22 History hydrochlorothiazide 25 mg tablet 12.5 mg PO QAM 02/25/22 08/27/22 History insulin glargine 100 unit/mL 22 unit subcut QAM 02/25/22 08/27/22 History subcutaneous solution (Lantus U-100 Insulin) metformin 1,000 mg tablet 1,000 mg PO BID 02/25/22 08/27/22 History metoprolol succinate 25 mg 50 mg PO QAM 02/25/22 08/27/22 History tablet,extended release 24 hr pantoprazole 40 mg tablet,delayed 40 mg PO QAM 02/25/22 08/27/22 History release cholecalciferol (vitamin D3) 25 50 mcg PO TID 08/24/22 08/27/22 History mcg (1,000 unit) tablet finasteride 5 mg tablet 5 mg PO PM 08/24/22 08/27/22 History Past Med/Surg History Medical History Barretts esophagus CAD (coronary artery disease) 2005. Stents x 2 to LAD 07/2005> follows with Dr. Weaver at [facility] Diabetes mellitus treated with insulin and oral medication Diabetic macular edema gets injections every 6-8 weeks Diabetic neuropathy feet, legs, hands Diabetic retinopathy gets injections every 6-8 weeks Difficult intubation s/p cervical spine fusion with limited ROM, h/o glidescope intubation GERD (gastroesophageal reflux disease) controlled, stable per pt History of blood transfusion History of kidney infection resolved after doxycycline treatment Hyperlipidemia Hypertension controlled, stable per pt Kidney stones passed on own Neurogenic claudication due to lumbar spinal stenosis Sleep apnea On CPAP-compliant Surgical History History of appendectomy History of arthroscopy right knee History of carpal tunnel release right History of cholecystectomy History of colonoscopy History of esophagogastroduodenoscopy (EGD) History of excision of pilonidal cyst History of heart artery stent 2005; stents x 2 History of tonsillectomy History of tooth extraction Hx of vasectomy S/P cervical spinal fusion LIMITED ROM ALL DIRECTIONS S/P ERCP 06/20/18: Grade 1 view, glidescope 3, ETT 8. S/P lumbar fusion X3 total Glidescope #3 used with gr I view #1 removal of instrumentation L3-L5. #2 exploration of fusion L3-L5. #3 lumbar decompression bilateral medial facetectomies and foraminotomies L1-L2 L2-L3. #4 posterior spinal fusion L2-L3. #5 placement posterior instrumentation L2-L3. #6 interbody fusion L2-L3. #7 placement of Spira 9 x 26 mm cage at L2-L3. #8 placement locally harvested morselized autograft in the posterior gutters. #9 placement of I factor model V toss in the interbody space and posterior lateral gutters. Family History Daughter Multiple sclerosis Father Diabetes Aunt Diabetes Uncle Diabetes Brother Diabetes Social History Smoking Status: Never smoker Second Hand Exposure: No; Do You Dip or Chew Tobacco: No; Tobacco Cessation Education Requested by Patient: No Hx Alcohol Use: No Hx Substance Use: No Preferred Language: Vincentian Communication Ability: Effective Field Marketing Lead Required: No Beliefs That Will Affect Care: None Current Living Situation: Spouse Current Living Situation Comment: Lives at home with ; states daughter, RN, lives 6 miles away to help Other Information That Helps Us Care for You: No Feels Safe at Home: Yes Safety Concerns: Feels Safe At This Time Assistive Devices: Glasses Review of Systems All systems reviewed & are unremarkable except as noted in HPI & below Physical Exam Physical Exam: General: Alert/Arousable. No Acute illness. . HEENT: Inspection normal. Normal inspection of face. Normal inspection of neck. Psychologic: Normal affect/No change in mentation. Respiratory: No use of accessory muscles. No respiratory changes or exacerbation or changes with tachypnea or dyspnea. Cardiovascular: No tachycardia Skin: [place] and Dry. No new rashes or visible lesions. Abdomen: Normal inspection. No guarding. PG Care Time/CCT Total # of Minutes Spent Total Time Spent with Patient: Total time spent is greater than 50% in coordination of care (as documented) at patient's floor/unit and/or counseling patient: Coding Level of Care Code None Diagnoses Arm pain M79.601; M79.602 Laterality: bilateral Urinary retention R33.9 (1) Arm pain Laterality: bilateral Qualified Code(s): M79.601 - Pain in right arm; M79.602 - Pain in left arm
[2022-08-27] MEDS ORDERED: PHENAZOPYRIDINE HCL 200 MG TAB PO PRN (08:47)
[2022-08-27] MEDS ORDERED: oxyCODONE/ACETAMINOPHEN 5mg/325mg TAB PO PRN (08:47)
[2022-08-27] MEDS ORDERED: MoRPHine SULFATE 2 MG/ML CARP IV PRN (08:47)
[2022-08-27] MEDS ORDERED: ONDANSETRON INJ 2 MG/ML 2 ML VIAL IV PRN ×2 (08:47→09:59)
[2022-08-27] MEDS ORDERED: NITROGLYCERIN SL 0.4 MG/TAB TAB SL PRN (08:52)
[2022-08-27] MEDS ORDERED: ACETAMINOPHEN 325 MG TAB PO PRN (08:52)
[2022-08-27] MEDS ORDERED: amLODIPine BESYLATE 5 MG TAB PO SCH (09:00)
[2022-08-27] MEDS ORDERED: LANTUS PER UNIT CHARGE SQ SCH ×2 (09:00→16:30)
[2022-08-27] MEDS ORDERED: fentaNYL citrate 100 MCG/2 ML VIAL ONE (09:15)
[2022-08-27 09:48] LABS: Basophils # (auto) 0.03 K/uL (0-0.2); Basophils % (auto) 0.5 %; Eosinophils # (auto) 0.19 K/uL (0-0.50); Eosinophils % (auto) 3.4 %; Hematocrit (blood only) 32.6 % (42.0-52.0); Hemoglobin 11.2 g/dl (14.0-18.0); Immature Granulocytes # (auto) 0.01 K/uL (0.01-0.20); Immature Granulocytes % (auto) 0.2 %; Lymphocytes # (auto) 2.06 K/uL (1.2-3.4); Lymphocytes % (auto) 36.9 %; Mean Corpuscular Hemoglobin 29.6 pg (25.0-34.0); Mean Corpuscular Hgb Conc 34.4 g/dL (32.0-36.0); Mean Platelet Volume 9.8 fL (9.4-12.4); Monocytes # (auto) 0.66 K/uL (0.11-0.59); Monocytes % (auto) 11.8 %; Neutrophils # (auto) 2.64 K/uL (1.40-6.50); Neutrophils % (auto) 47.2 %; Platelet Count 250 K/uL (130-400); RDW Coefficient of Variation 13.8 % (11.5-14.5); RDW Standard Deviation 43.3 fL (36.4-46.3); Red Blood Count 3.79 M/uL (4.70-6.10); White Blood Count 5.59 K/ul (4.8-10.8)
[2022-08-27 09:56] LABS: Albumin Globulin Ratio 1.5 (0.9-2); Albumin Level 3.7 gm/dl (3.4-5.0); BUN Creatinine Ratio 19.3 (10-20); Bilirubin,Total 0.7 mg/dl (0.2-1.0); Calcium 9.4 mg/dl (8.5-10.1); Est GFR (Non-African American) 65.6 ml/min; Globulin 2.4 gm/dl (2.5-4.0); Potassium 4.5 mmol/L (3.5-5.1); Total Protein 6.1 gm/dl (6.0-8.3)
[2022-08-27] MEDS ORDERED: ATROPINE SULFATE 0.1 MG/ML 10ML SYR IV PRN (09:59)
[2022-08-27] MEDS ORDERED: PROMETHAZINE HCL 12.5 MG in SODIUM CHLORIDE 0.9% 50 ML IV PRN (09:59)
[2022-08-27] MEDS ORDERED: ePHEDrine sulfate 50 MG/ML AMP IV PRN (09:59)
[2022-08-27] MEDS ORDERED: HYDROmorphone INJ 2 MG/ML SYR/VIAL IV PRN (09:59)
[2022-08-27] MEDS ORDERED: fentaNYL citrate 100 MCG/2 ML VIAL IV PRN (09:59)
[2022-08-27] MEDS ORDERED: LIDOCAINE 2% MPF LOCAL 5 ML VIAL INFIL ONE (10:56)
[2022-08-27] MEDS ORDERED: ONDANSETRON INJ 2 MG/ML 2 ML VIAL ONE (10:56)
[2022-08-27] MEDS ORDERED: GLYCOPYRROLATE 0.2 MG/ML VIAL ONE (10:56)
[2022-08-27] MEDS ORDERED: PROPOFOL IV EMULSION 10 MG/ML 20 ML VIAL IV ONE (10:56)
--- NOTE | 2022-08-27 11:06 | Operative Report ---
PG Post Operative Report Pre & Post Diagnosis BPH with obstruction Same Operation Date: 08/27/22 09:30 <No data on this case meets the specified criteria> I identified the patient and participated in the time-out.: Yes Procedure Transurethral resection of prostate Operation Date: 08/27/22 09:30 <No data on this case meets the specified criteria> Surgeon Quentin Kline, II, DO [employer] Operator None Estimated Blood Loss 10 Findings Consistent with Post-Op Diagnosis Extremely high bladder neck with very large median lobe. Significant obstructive issues. Large Prostate with obstruction. Specimens Prostate adenoma. Drains 24Fr three-way catheter Anesthesia Type General Complications none Disposition Disposition: Recovery Room Indications Patient with obstruction due to prostate enlargement. Risks and benefits discussed at length. Description of Procedure Patient was consented and brought back to the operating room. Patient was placed under anesthesia in the supine position and moved to the dorsal lithotomy position. Patient was prepped and draped in the regular sterile fashion. A time out was completed. A 30degree Cystoscope was placed into the bladder and the entire bladder was examined. The UO's were identified as well as the bladder neck, trigone, dome, and the other important landmarks. The prostatic urethra and large lobes/adenoma was assessed and the veru and bladder neck identified and area/size was assessed. The bladder neck was extremely high and a markedly enlarged median lobe was noted. Patient also had significant lateral lobe enlargement. Overall had severe obstructive issues. He also had a number of prostatic varicosities throughout the prostate. The resection scope was placed and the fine bipolar loop was selected. Starting at the 5 and 7 o'clock positions, a channel was created from bladder neck to the veru. With the channel created the majority of the median lobe was able to be resected down. This drastically increased mobility and allowed better access into the bladder and to assess the surrounding tissue. With the channel more well-formed and resection taken down to capsule fibers resection then was taken from the 1 and 11:00 positions sweeping down towards the channel. This was resected from the bladder neck back to the region of the Alexia. Tissue was resected down the capsule fibers. A large amount of prostatic tissue was able to be resected. A drastic improvement in the channel was able to be created. The Specimen was removed and sent for analysis. The resection bed and any bleeding areas were fulgurated/cauterized and the entire area inspected. All bleeding was controlled. The bladder was inspected a final time. The UOs were found to be patent but were somewhat close to the area of resection near the bladder neck. Both appear to be draining well without major issue. The bladder was emptied and irrigated. All specimen and debris was removed. The scope was removed with the bladder partially full. A catheter was placed and balloon elevated. This was easily irrigated. The patient was cleaned, aroused from anesthesia, and transferred to the pacu in stable condition having tolerated the procedure well with no complications. I was present and participated in all aspects of the procedure. The patient will be monitored in the PACU until transferred. Patient will be observed overnight. We will maintain catheter for approximately 7 to 10 days and remove in the office. We will continue CBI overnight. We will need to discuss pathology once available likely at follow-up to remove catheter I attest to the content of the Intraoperative Record and any orders documented therein. Any exceptions are noted below.
--- NOTE | 2022-08-27 12:43 | Anesthesiology Progress Note ---
Date of Service August 27, 2022 Anesthesia Post Procedure Vital Signs Vital Signs: Temp Pulse Pulse Resp BP Pulse Ox O2 Del Method 08/27/22 12:30 52 L 13 133/65 99 Room Air 08/27/22 12:15 61 16 143/69 H 97 Room Air 08/27/22 12:00 63 14 143/66 H 95 Room Air 08/27/22 11:45 36.4 C L 56 L 20 129/64 98 Room Air 08/27/22 11:35 58 L 19 130/84 100 Room Air 08/27/22 11:25 55 L 13 140/69 100 Oxymask 08/27/22 11:15 59 L 15 152/74 H 100 Oxymask 08/27/22 11:12 36.7 C 65 16 154/73 H 100 Oxymask 08/27/22 08:26 36.8 C 63 20 160/65 H 100 Room Air O2 Flow Rate 08/27/22 12:30 0 08/27/22 12:15 0 08/27/22 12:00 0 08/27/22 11:45 0 08/27/22 11:35 0 08/27/22 11:25 5 08/27/22 11:15 5 08/27/22 11:12 7 08/27/22 08:26 Pain Intensity Groin: Pain Intensity: 2 Transfer of Care Handoff Completed per policy Notes Mental Status: alert / awake / arousable and participated in evaluation Patient Amnestic to Procedure: Yes Nausea / Vomiting: adequately controlled Pain: adequately controlled Airway Patency, RR, SpO2: stable & adequate BP & HR: stable & adequate Hydration State: stable & adequate Anesthetic Complications: no major complications apparent
[2022-08-27] MEDS ORDERED: PHARMACY GLYCEMIC MGMT CONSULT PRN (14:17)
--- NOTE | 2022-08-27 14:26 | Hospitalist Consultation ---
Date of Consultation August 27, 2022 Assessment & Plan (1) Status post transurethral resection of prostate: Pain/VTE/bowel management per primary urology team (2) Sleep apnea: CPAP HS (3) CAD (coronary artery disease): 2005. Stents x 2 to LAD 07/2005> follows with Dr. Weaver at [facility] Restart aspirin when ok by urology. No particular urgency for this. Continue metoprolol succinate, lisinopril, atorvastatin (4) Diabetes mellitus treated with insulin and oral medication: HbA1c 7.6 in February. Repeat with a.m. labs. Did not take his usual Lantus this morning. Consult pharmacy for glycemic control during inpatient admission. Discharge medications to be determined depending on HbA1c. (5) Hypertension: Patient tolerate metoprolol succinate and amlodipine this morning. Restart metoprolol succinate 50 mg p.o. daily tomorrow along with amlodipine and fosinopril with hold parameters Restart hydrochlorothiazide postop day 2 with hold parameters (6) Hyperlipidemia: Continue atorvastatin 10 mg p.o. every afternoon (7) Barretts esophagus: Continue pantoprazole 40 mg p.o. daily Plan Thank you for the consult. We will continue to follow the patient tomorrow. History of Present Illness Reason for Consultation: IDDM, HTN Attending Physician: Quentin Kline, II, DO History of Present Illness 77 year old male presents for elective transurethral resection of his prostate performed by Dr Kline earlier today. Estimated blood loss 10ml. No complications noted. He reports having a feeling of needing to have a bowel movement but otherwise no acute concerns or questions. Allergies Allergy/AdvReac Type Severity Reaction Status Date / Time tamsulosin [From Flomax] Allergy Severe Difficulty Verified 08/24/22 13:51 Breathing empagliflozin AdvReac Mild Joint Pain Verified 08/24/22 13:51 [From Jardiance] pregabalin [From Lyrica] AdvReac Mild Joint Pain Verified 08/24/22 13:51 Home Medications Medication Instructions Recorded Confirmed Type nitroglycerin 0.4 mg sublingual 0.4 mg sublingual DIRECTED PRN 06/19/18 08/27/22 History tablet Chest Pain acetaminophen 325 mg tablet (Mapap 650 mg PO Q4H PRN pain #30 tabs 06/23/18 08/27/22 Rx (acetaminophen)) amlodipine 5 mg tablet (Norvasc) 5 mg PO QAM #30 tabs 06/23/18 08/27/22 Rx aspirin 81 mg tablet,delayed 81 mg PO QAM 02/25/22 08/27/22 History release atorvastatin 10 mg tablet 10 mg PO PM 02/25/22 08/27/22 History fosinopril 40 mg tablet 40 mg PO QAM 02/25/22 08/27/22 History hydrochlorothiazide 25 mg tablet 12.5 mg PO QAM 02/25/22 08/27/22 History insulin glargine 100 unit/mL 22 unit subcut QAM 02/25/22 08/27/22 History subcutaneous solution (Lantus U-100 Insulin) metformin 1,000 mg tablet 1,000 mg PO BID 02/25/22 08/27/22 History metoprolol succinate 25 mg 50 mg PO QAM 02/25/22 08/27/22 History tablet,extended release 24 hr pantoprazole 40 mg tablet,delayed 40 mg PO QAM 02/25/22 08/27/22 History release cholecalciferol (vitamin D3) 25 50 mcg PO TID 08/24/22 08/27/22 History mcg (1,000 unit) tablet finasteride 5 mg tablet 5 mg PO PM 08/24/22 08/27/22 History Patient History Medical History (Updated 08/27/22 @ 14:19 by Mendez Bailey MD) Acute cholecystitis Barretts esophagus CAD (coronary artery disease) 2005. Stents x 2 to LAD 07/2005> follows with Dr. Weaver at [facility] Diabetes mellitus treated with insulin and oral medication Diabetic macular edema gets injections every 6-8 weeks Diabetic neuropathy feet, legs, hands Diabetic retinopathy gets injections every 6-8 weeks Difficult intubation s/p cervical spine fusion with limited ROM, h/o glidescope intubation GERD (gastroesophageal reflux disease) controlled, stable per pt History of blood transfusion History of kidney infection resolved after doxycycline treatment Hyperlipidemia Hypertension controlled, stable per pt Kidney stones passed on own Neurogenic claudication due to lumbar spinal stenosis Sleep apnea On CPAP-compliant Surgical History (Updated 08/27/22 @ 14:19 by Mendez Bailey MD) History of appendectomy History of arthroscopy right knee History of carpal tunnel release right History of cholecystectomy History of colonoscopy History of esophagogastroduodenoscopy (EGD) History of excision of pilonidal cyst History of heart artery stent 2006; stents x 2 History of tonsillectomy History of tooth extraction Hx of vasectomy S/P cervical spinal fusion LIMITED ROM ALL DIRECTIONS S/P ERCP 06/20/18: Grade 1 view, glidescope 3, ETT 8. S/P lumbar fusion X3 total Glidescope #3 used with gr I view #1 removal of instrumentation L3-L5. #2 exploration of fusion L3-L5. #3 lumbar decompression bilateral medial facetectomies and foraminotomies L1-L2 L2-L3. #4 posterior spinal fusion L2-L3. #5 placement posterior instrumentation L2-L3. #6 interbody fusion L2-L3. #7 placement of Spira 9 x 26 mm cage at L2-L3. #8 placement locally harvested morselized autograft in the posterior gutters. #9 placement of I factor model V toss in the interbody space and posterior lateral gutters. Family History Daughter Multiple sclerosis Father Diabetes Aunt Diabetes Uncle Diabetes Brother Diabetes Social History Smoking Status: Never smoker Second Hand Exposure: No; Do You Dip or Chew Tobacco: No; Tobacco Cessation Education Requested by Patient: No Hx Alcohol Use: No Hx Substance Use: No Preferred Language: Trinidadian Communication Ability: Effective Vibratory Pile Driver Required: No Beliefs That Will Affect Care: None Current Living Situation: Spouse Current Living Situation Comment: Lives at home with ; states daughter, RN, lives 6 miles away to help Other Information That Helps Us Care for You: No Feels Safe at Home: Yes Safety Concerns: Feels Safe At This Time Assistive Devices: Glasses Review of Systems Review of Systems: All systems reviewed & are unremarkable except as noted in HPI & below Physical Exam Constitutional: WD/WN, vitals as above Respiratory: normal respiratory effort, lungs clear to auscultation Cardiovascular: RRR, no murmur, no edema Gastrointestinal (Abdomen): normal bowel sounds, soft, nontender, no hepatosplenomegaly Neurologic: moves all extremities and awake; not confused Psychiatric: A+Ox3, euthymic affect Results & Data Results & Data ([facility]) Vital Signs (Past 12 Hours) Vital Signs Temp Pulse Pulse Resp BP Pulse Ox O2 Del Method 08/27/22 13:15 60 17 156/79 H 98 Room Air 08/27/22 12:45 66 20 137/70 100 Room Air 08/27/22 12:30 52 L 13 133/65 99 Room Air 08/27/22 12:15 61 16 143/69 H 97 Room Air 08/27/22 12:00 63 14 143/66 H 95 Room Air 08/27/22 11:45 36.4 C L 56 L 20 129/64 98 Room Air 08/27/22 11:35 58 L 19 130/84 100 Room Air 08/27/22 11:25 55 L 13 140/69 100 Oxymask 08/27/22 11:15 59 L 15 152/74 H 100 Oxymask 08/27/22 11:12 36.7 C 65 16 154/73 H 100 Oxymask 08/27/22 08:26 36.8 C 63 20 160/65 H 100 Room Air O2 Flow Rate 08/27/22 13:15 08/27/22 12:45 0 08/27/22 12:30 0 08/27/22 12:15 0 08/27/22 12:00 0 08/27/22 11:45 0 08/27/22 11:35 0 08/27/22 11:25 5 08/27/22 11:15 5 08/27/22 11:12 7 08/27/22 08:26 PG Care Time/CCT Total # of Minutes Spent Total Time Spent with Patient: Total time spent is greater than 50% in coordination of care (as documented) at patient's floor/unit and/or counseling patient: Coding Level of Care Code INP/OBS CONSULT LVL 4, 60 MIN Diagnoses Status post transurethral resection of prostate Z90.79 Sleep apnea G47.30 CAD (coronary artery disease) I25.10 Diabetes mellitus treated with insulin and oral medication E11.9; Z79.4 Hypertension I10 Hyperlipidemia E78.5 Barretts esophagus K22.70
--- NOTE | 2022-08-27 15:12 | Pharmacy Report ---
Pharmacy Glycemic Short Note 2 - Date of Service August 27, 2022 - Glycemic Short BSG Results (Last 24 hours): 08/27/22 08/27/22 08/27/22 08:15 09:20 11:14 Glucose 122 H POC Glucose 117 H 104 H 08/27/22 12:38 Glucose POC Glucose 87 OUTPATIENT ANTIDIABETIC REGIMEN: * Lantus 22 units SQ qAM (not taken this AM per patient) * metformin 1000 mg PO BID * HbA1C per patient report 8 on 08/18/22 ASSESSMENT: * Mr Lopez is a 77 y/o M s/p surgery today. Per chart, patient received no dexamethasone. Per patient report, he did not take Lantus this AM. * BSGs today are 117-109-87 mg/dL. After BSG of 87 mg/dL, patient ate some crackers and juice. * Patient amenable to receiving Lantus with dinner this evening if his BSGs are high. * Will provide Lantus if patient's BSGs greater than 140 mg/dL at dinnertime- only half of home dose of Lantus since BSGs trending downwards today. * Novolog weight-based stress of 2. * Hold metformin since patient postop. PLAN FOR INPATIENT GLYCEMIC CONTROL: * Hold outpatient oral diabetes medications * Basal insulin * Lantus 10 units SQ with dinner if BSG > 140 mg/dL then re-evaluate on 08/28 * Bolus insulin * NovoLog per scale ACHS or Q6hrs while NPO * Goal Range: Low 110 mg/dL - High 140 mg/dL * Correction Factor: 25 mg/dL/unit * Nutritional / Prandial insulin per carb ratio of 1 unit per 8 grams CHO consumed
[2022-08-27] MEDS: SODIUM CHLORIDE 0.9% 1000ML 1,000 ML IV SCH (15:19)
[2022-08-27] MEDS: DOCUSATE SODIUM 100 MG CAP PO SCH ×2 (15:27→20:27)
[2022-08-27] MEDS: PANTOprazole 40 MG TAB PO SCH (16:59)
[2022-08-27] MEDS: INSULIN ASPART PER UNIT SC SCH ×2 (17:01→20:35)
[2022-08-27] MEDS: CHOLECALCIFEROL 1,000 UNITS 25 MCG TAB PO SCH ×2 (18:43→21:29)
[2022-08-27] MEDS: METOPROLOL SUCC 50MG EXT REL TAB PO SCH (18:44)
[2022-08-27] MEDS ORDERED: ATORVASTATIN 10 MG TAB PO SCH (21:00)
[2022-08-28] MEDS: SODIUM CHLORIDE 0.9% 1000ML 1,000 ML IV SCH (04:06)
[2022-08-28 07:16] LABS: Basophils # (auto) 0.02 K/uL (0-0.2); Basophils % (auto) 0.2 %; Eosinophils # (auto) 0.09 K/uL (0-0.50); Hematocrit (blood only) 30.1 % (42.0-52.0); Hemoglobin 10.6 g/dl (14.0-18.0); Immature Granulocytes # (auto) 0.02 K/uL (0.01-0.20); Immature Granulocytes % (auto) 0.2 %; Lymphocytes # (auto) 1.86 K/uL (1.2-3.4); Lymphocytes % (auto) 20.8 %; Mean Corpuscular Hemoglobin 30.5 pg (25.0-34.0); Mean Corpuscular Hgb Conc 35.2 g/dL (32.0-36.0); Mean Corpuscular Volume 86.7 fL (80.0-100.0); Monocytes # (auto) 0.91 K/uL (0.11-0.59); Monocytes % (auto) 10.2 %; Neutrophils # (auto) 6.04 K/uL (1.40-6.50); Neutrophils % (auto) 67.6 %; Platelet Count 239 K/uL (130-400); RDW Coefficient of Variation 13.9 % (11.5-14.5); RDW Standard Deviation 43.8 fL (36.4-46.3); Red Blood Count 3.47 M/uL (4.70-6.10); White Blood Count 8.94 K/ul (4.8-10.8)
[2022-08-28 07:33] LABS: Calcium 8.8 mg/dl (8.5-10.1); Potassium 4.5 mmol/L (3.5-5.1)
[2022-08-28 07:39] LABS: BUN Creatinine Ratio 17.4 (10-20); Est GFR (Non-African American) 65.6 ml/min
--- NOTE | 2022-08-28 07:45 | Hospitalist Progress Note ---
Date of Service August 28, 2022 Assessment & Plan (1) Status post transurethral resection of prostate: Plan: POD#1 s/p TURP with Dr Kline for adenoma. EBL 10cc Pain control/bowel regimen/PT/OT per primary service LR@75cc/hr per primary service WBC wnl on labs hgb 11.2--> 10.6, acute blood loss anemia from surgery as well as dilutional as on IVF Kidney function stable, BUN/Cr 19/1.09, continues on lisinopril, HCTZ to resume tomorrow DVT prophylaxis: SCDs ordered currently Patient planning for d/c later today if looks good for urology on recheck w/ givens catheter and outpatient followup (2) Sleep apnea: Plan: CPAP HS (3) CAD (coronary artery disease): Plan: 2005. Stents x 2 to LAD 07/2005> follows with Dr. Weaver at [facility] Restart aspirin when ok by urology. No particular urgency for this. Continue metoprolol succinate, lisinopril, atorvastatin (4) Diabetes mellitus treated with insulin and oral medication: Plan: HbA1c 7.6 in February. Repeat with a.m. labs. Did not take his usual Lantus this morning. Consult pharmacy for glycemic control during inpatient admission. Discharge medications to be determined depending on HbA1c. -- A1c 7.8 from 7.6 and can continue usual meds at d/c and f/u PCP (5) Hypertension: Plan: BP 151/68 Continues on metoprolol 50mg, amlodipine 5mg, (lisinopril substituted while inpatient for fosinopril) HCTZ to resume for tomorrow (6) Hyperlipidemia: Plan: Continue atorvastatin 10 mg daily (7) Barretts esophagus: Plan: Continue pantoprazole 40 mg p.o. daily Plan thank you for allowing hospitalist service to participate in the care of Mr Lopez Hospitalist service will sign off at this time unless events arise this afternoon/patient stays overnight. Discussed w/ urology [facility] HEALTH PROVIDER and stable for dc from medicine standpoint if givens continues w/ improvement this afternoon on recheck Please call with any questions/concerns. Admission and Anticipated Discharge Date Admission Date: August 27, 2022 Supervising Physician Co-Signing Physician Notes PA Supervision Note: I did not personally see or examine the patient today, but I verified all slater points of SOLO Ng's assessment and plan with the following exceptions/additions: None Subjective eval this morning, doing well. Pain controlled, only occasional grabbing/pinching sensation from catheter reported. No fever/chills, chest pain, shortness of breath, abdominal pain or nausea. Passing gas but no BM. Eating lunch, has regular sherbert and ice cream, he is wondering why not sugar free. Asking for cream for his tea currently. Givens clamped this AM and clearing up in the tubing. He states urology is to come back around later today and he is hopeful for d/c. Questions/concerns addressed at this time. Did message urology as patient still on full liquid diet to advance if ok prior to d/c Review of Systems Review of Systems: All systems reviewed & are unremarkable except as noted in HPI & below Physical Exam Physical Exam: General: WD/WN male sitting up in chair eating lunch, NAD HEENT: head normocephalic, mmm, trachea midline without deviation Resp: CTAB, no w/c, on room air CV: bradycardic (rates 50-60s on tele), no calf tenderness/edema GI: +BS, slight distension, nontender : givens clamped, urine clearing in the tube (velasquez red in bag), some clots/sediment noted MSK/Neuro: nonfocal, no slurred speech/facial droop, follows commands, speech clear and appropriate Psych: AOx3, cooperative and pleasant Results & Data Results & Data ([facility]) Vital Signs (Past 12 Hours) Vital Signs Temp Pulse Pulse Resp BP Pulse Ox O2 Del Method 08/28/22 03:33 37.0 C 61 18 135/71 95 Room Air 08/28/22 02:17 78 14 94 08/28/22 00:28 37.2 C 78 20 134/70 94 Room Air, CPAP 08/28/22 00:26 66 08/27/22 23:00 60 12 93 08/27/22 20:04 36.8 C 57 L 18 161/78 H 96 Room Air O2 Flow Rate FiO2 08/28/22 03:33 08/28/22 02:17 08/28/22 00:28 08/28/22 00:26 08/27/22 23:00 0 21 08/27/22 20:04 Laboratory Results 08/28/22 08/28/22 08/28/22 Range/Units 11:54 07:39 06:48 WBC (4.8-10.8) K/ul RBC (4.70-6.10) M/uL Hgb (14.0-18.0) g/dl Hct (42.0-52.0) % MCV (80.0-100.0) fL MCH (25.0-34.0) pg MCHC (32.0-36.0) g/dL RDW Std Deviation (36.4-46.3) fL RDW Coeff of Cora (11.5-14.5) % Plt Count (130-400) K/uL MPV (9.4-12.4) fL Immature Gran % (Auto) % Neut % (Auto) % Lymph % (Auto) % [place] % (Auto) % Eos % (Auto) % Baso % (Auto) % Neut # (Auto) (1.40-6.50) K/uL Lymph # (Auto) (1.2-3.4) K/uL [place] # (Auto) (0.11-0.59) K/uL Eos # (Auto) (0-0.50) K/uL Baso # (Auto) (0-0.2) K/uL Immature Gran # (Auto) (0.01-0.20) K/uL Sodium (136-145) mmol/L Potassium (3.5-5.1) mmol/L Chloride (98-107) mmol/L Carbon Dioxide (21-32) mmol/L Anion Gap (3-11) BUN (6-23) mg/dl Creatinine (0.6-1.4) mg/dl Est Cr Clr Drug Dosing ml/min Est GFR ( Amer) ml/min Est GFR (Non-Af Amer) ml/min BUN/Creatinine Ratio (10-20) Glucose (70-99(Fasting)) mg/dl POC Glucose 188 H 158 H (70-99) mg/dl Estimat Average Glucose 177 mg/dl Hemoglobin A1c 7.8 H (4.5-5.6) % Calcium (8.5-10.1) mg/dl 08/28/22 08/28/22 08/27/22 Range/Units 06:48 06:48 20:35 WBC 8.94 (4.8-10.8) K/ul RBC 3.47 L (4.70-6.10) M/uL Hgb 10.6 L (14.0-18.0) g/dl Hct 30.1 L (42.0-52.0) % MCV 86.7 (80.0-100.0) fL MCH 30.5 (25.0-34.0) pg MCHC 35.2 (32.0-36.0) g/dL RDW Std Deviation 43.8 (36.4-46.3) fL RDW Coeff of Cora 13.9 (11.5-14.5) % Plt Count 239 (130-400) K/uL MPV 10.0 (9.4-12.4) fL Immature Gran % (Auto) 0.2 % Neut % (Auto) 67.6 % Lymph % (Auto) 20.8 % [place] % (Auto) 10.2 % Eos % (Auto) 1.0 % Baso % (Auto) 0.2 % Neut # (Auto) 6.04 (1.40-6.50) K/uL Lymph # (Auto) 1.86 (1.2-3.4) K/uL [place] # (Auto) 0.91 H (0.11-0.59) K/uL Eos # (Auto) 0.09 (0-0.50) K/uL Baso # (Auto) 0.02 (0-0.2) K/uL Immature Gran # (Auto) 0.02 (0.01-0.20) K/uL Sodium 139 (136-145) mmol/L Potassium 4.5 (3.5-5.1) mmol/L Chloride 108 H (98-107) mmol/L Carbon Dioxide 28 (21-32) mmol/L Anion Gap 3 (3-11) BUN 19 (6-23) mg/dl Creatinine 1.09 (0.6-1.4) mg/dl Est Cr Clr Drug Dosing 67.0 ml/min Est GFR ( Amer) 76.0 ml/min Est GFR (Non-Af Amer) 65.6 ml/min BUN/Creatinine Ratio 17.4 (10-20) Glucose 153 H (70-99(Fasting)) mg/dl POC Glucose 119 H (70-99) mg/dl Estimat Average Glucose mg/dl Hemoglobin A1c (4.5-5.6) % Calcium 8.8 (8.5-10.1) mg/dl 08/27/22 08/27/22 Range/Units 16:40 12:38 WBC (4.8-10.8) K/ul RBC (4.70-6.10) M/uL Hgb (14.0-18.0) g/dl Hct (42.0-52.0) % MCV (80.0-100.0) fL MCH (25.0-34.0) pg MCHC (32.0-36.0) g/dL RDW Std Deviation (36.4-46.3) fL RDW Coeff of Cora (11.5-14.5) % Plt Count (130-400) K/uL MPV (9.4-12.4) fL Immature Gran % (Auto) % Neut % (Auto) % Lymph % (Auto) % [place] % (Auto) % Eos % (Auto) % Baso % (Auto) % Neut # (Auto) (1.40-6.50) K/uL Lymph # (Auto) (1.2-3.4) K/uL [place] # (Auto) (0.11-0.59) K/uL Eos # (Auto) (0-0.50) K/uL Baso # (Auto) (0-0.2) K/uL Immature Gran # (Auto) (0.01-0.20) K/uL Sodium (136-145) mmol/L Potassium (3.5-5.1) mmol/L Chloride (98-107) mmol/L Carbon Dioxide (21-32) mmol/L Anion Gap (3-11) BUN (6-23) mg/dl Creatinine (0.6-1.4) mg/dl Est Cr Clr Drug Dosing ml/min Est GFR ( Amer) ml/min Est GFR (Non-Af Amer) ml/min BUN/Creatinine Ratio (10-20) Glucose (70-99(Fasting)) mg/dl POC Glucose 137 H 87 (70-99) mg/dl Estimat Average Glucose mg/dl Hemoglobin A1c (4.5-5.6) % Calcium (8.5-10.1) mg/dl PG Care Time/CCT Total # of Minutes Spent Total Time Spent with Patient: Total time spent is greater than 50% in coordination of care (as documented) at patient's floor/unit and/or counseling patient: Coding Level of Care Code 92545 SUB INP/OBS CARE 2/35MIN Diagnoses Status post transurethral resection of prostate Z90.79 Sleep apnea G47.30 CAD (coronary artery disease) I25.10 Diabetes mellitus treated with insulin and oral medication E11.9; Z79.4 Hypertension I10 Hyperlipidemia E78.5 Barretts esophagus K22.70
--- NOTE | 2022-08-28 08:53 | Urology Progress Note ---
Date of Service August 28, 2022 Assessment & Plan (1) Status post transurethral resection of prostate: (2) BPH w urinary obs/LUTS: Plan Postop day #1 status post Transurethral resection of prostate. Feeling well, progressing as expected. Hospital medicine consulted postoperatively, appreciate recommendations. Remains afebrile and hemodynamically stable. Labs show no leukocytosis, hemoglobin 10.6, normal renal function. 3-way Churchill catheter intact, patent and draining pink-tinged urine with CBI on slow. CBI clamped @0800, nursing aware - will reassess later this AM. Maintain Churchill catheter. Encourage ambulation. Anticipate home with Churchill catheter later today presuming urine appropriate and he continues to progress as expected. Patient reassessed this afternoon. Urine remains light pink off CBI. No clots noted. No reported pain. Ambulated without issue. Tolerating diet. Discussed with hospital team-okay for discharge from their perspective. Patient stable for discharge home with Churchill catheter. Discharge instructions were reviewed, all questions were answered. We will arrange appropriate postoperative follow-up. Admission and Anticipated Discharge Date Admission Date: August 27, 2022 Subjective Patient examined at bedside this AM. Awake, resting in bed on arrival. No acute distress. Churchill catheter intact, draining pink-tinged urine with CBI on slow. He does note some minor discomfort from the catheter. Denies suprapubic pain or pressure. No fevers. Tolerating diet. No nausea or vomiting. Review of Systems Constitutional: as per Subjective / HPI Gastrointestinal: as per Subjective / HPI Genitourinary: + as per Subjective / HPI Physical Exam Constitutional: no acute distress Respiratory: no respiratory distress and no labored breathing Gastrointestinal (Abdomen): Percussion/Palpation: abdomen soft; abdomen nontender Neurologic: moves all extremities and awake Psychiatric: Orientation: alert, oriented x 3 and cooperative Genitourinary: Churchill catheter intact, draining pink-tinged urine with CBI on slow. Results & Data ([facility]) Vital Signs (Past 12 Hours) Vital Signs Temp Pulse Pulse Resp BP Pulse Ox O2 Del Method 08/28/22 08:05 36.9 C 58 L 20 147/68 H 95 Room Air 08/28/22 03:33 37.0 C 61 18 135/71 95 Room Air 08/28/22 02:17 78 14 94 08/28/22 00:28 37.2 C 78 20 134/70 94 Room Air, CPAP 08/28/22 00:26 66 08/27/22 23:00 60 12 93 O2 Flow Rate FiO2 08/28/22 08:05 08/28/22 03:33 08/28/22 02:17 08/28/22 00:28 08/28/22 00:26 08/27/22 23:00 0 21 PG Care Time/CCT Total # of Minutes Spent Total Time Spent with Patient: Total time spent is greater than 50% in coordination of care (as documented) at patient's floor/unit and/or counseling patient: Coding Level of Care Code None Diagnoses Status post transurethral resection of prostate Z90.79 BPH w urinary obs/LUTS N40.1; N13.8
[2022-08-28] MEDS ORDERED: amLODIPine BESYLATE 5 MG TAB PO SCH (09:00)
[2022-08-28] MEDS ORDERED: lisinopril 40 MG TAB PO SCH (09:00)
[2022-08-28] MEDS ORDERED: LANTUS PER UNIT CHARGE SQ ONE (09:00)
[2022-08-28] MEDS: METOPROLOL SUCC 50MG EXT REL TAB PO SCH (09:18)
[2022-08-28] MEDS: DOCUSATE SODIUM 100 MG CAP PO SCH (09:19)
[2022-08-28] MEDS: CHOLECALCIFEROL 1,000 UNITS 25 MCG TAB PO SCH ×2 (09:19→13:09)
[2022-08-28 09:31] LABS: Estimated Average Glucose 177 mg/dl; Hemoglobin A1C 7.8 % (4.5-5.6)
[2022-08-28] MEDS: INSULIN ASPART PER UNIT SC SCH ×2 (09:34→13:07)
[2022-08-28] MEDS: PANTOprazole 40 MG TAB PO SCH (10:18)
--- NOTE | 2022-08-28 14:13 | Discharge Summary ---
Date of Service August 28, 2022 Admission HPI Per Admitting Provider Patient here for procedure. No changes in medical issues. No major changes in urinary issues. Continued issues and concerns. No change in pain or discomfort. No severe fevers or chills. No chest pain or shortness of breath. Risks and benefits discussed at length for procedure. These include bleeding, infection, injury to surrounding tissues or organs, and risks associated with anesthesia. Patient and/or family states understanding and agrees to proceed. Consent and supporting information completed. Admission Exam Per Admitting Provider General: Alert/Arousable. No Acute illness. . HEENT: Inspection normal. Normal inspection of face. Normal inspection of neck. Psychologic: Normal affect/No change in mentation. Respiratory: No use of accessory muscles. No respiratory changes or exacerbation or changes with tachypnea or dyspnea. Cardiovascular: No tachycardia Skin: [place] and Dry. No new rashes or visible lesions. Abdomen: Normal inspection. No guarding. Principal Diagnosis BPH with obstruction Discharge Exam Constitutional no acute distress Respiratory no respiratory distress and no labored breathing Gastrointestinal (Abdomen) Percussion/Palpation: abdomen soft; abdomen nontender Neurologic moves all extremities and awake Psychiatric Orientation: alert, oriented x 3 and cooperative Genitourinary Urine is pink-tinged Discharge Data Allergies Allergy/AdvReac Type Severity Reaction Status Date / Time tamsulosin [From Flomax] Allergy Severe Difficulty Verified 08/24/22 13:51 Breathing empagliflozin AdvReac Mild Joint Pain Verified 08/24/22 13:51 [From Jardiance] pregabalin [From Lyrica] AdvReac Mild Joint Pain Verified 08/24/22 13:51 Consultations 08/27/22 08:51 Consult Hospitalist Routine Procedures Performed Operation Date: 08/27/22 09:30 Actual Procedures p Transurethral Resection of the Prostate(Not Applicable) - Quentin Kline, Hospital Course (1) Status post transurethral resection of prostate: (2) BPH w urinary obs/LUTS: Plan Postop day #1 status post Transurethral resection of prostate. Feeling well, progressing as expected. Hospital medicine consulted postoperatively, appreciate recommendations. Remains afebrile and hemodynamically stable. Labs show no leukocytosis, hemoglobin 10.6, normal renal function. 3-way Churchill catheter intact, patent and draining pink-tinged urine with CBI on slow. CBI clamped @0800, nursing aware - will reassess later this AM. Maintain Churchill catheter. Encourage ambulation. Anticipate home with Churchill catheter later today presuming urine appropriate and he continues to progress as expected. Patient reassessed this afternoon. Urine remains light pink off CBI. No clots noted. No reported pain. Ambulated without issue. Tolerating diet. Discussed with hospital team-okay for discharge from their perspective. Patient stable for discharge home with Churchill catheter. Discharge instructions were reviewed, all questions were answered. We will arrange appropriate postoperative follow-up. Total Time Total Time Spent Total Time Spent (In Minutes): 15 Discharge Plan Discharge Items Patient Disposition: Home - Self-Care Reason For Visit: Urinary Retention, Benign Prostatic Hyperplasia Discharge Diagnosis: Urinary Retention, BPH Activity: Per Instructions section Lifting: No more than 25 pounds Bathing Comment: OK to shower. Sexual Activity: Wait until after follow-up appointment Exercise/Sports: Wait until after follow-up appointment Driving/Machine Use: Do not drive if taking prescription pain medication Non-emergency contact: Surgeon and Urologist Call non-emergency contact if: you have any medication questions, you have a fever, your wound has increased redness, your wound has increased drainage and your wound pain has increased Follow-up/Referrals: Quentin Kline DO [Physician] - Cortez Root [Primary Care Provider] - 09/01/22 1:00 pm Diet: Regular Addtl Attending Provider Instructions: The urology office will contact you to arrange your follow-up visit. Please take all medications as prescribed and keep all follow-ups as scheduled. Please call our office at [phone] with any questions, concerns or need to reschedule appointments for any reason. We are happy to assist you. You may resume your aspirin in the next 1-2 days if your urine remains clear to light pink. An antibiotic (Bactrim) was sent to your pharmacy. Please take as prescribed. Pyridium as needed for bladder pain was also sent to your pharmacy. Will turn your urine orange. Tips for your recovery at home: Dont be alarmed by brownish or reddish blood or clots in your urine. This is a result of the procedure. This may occur off and on for weeks to months after the procedure but should continue to improve. Drink plenty of fluids during the day (enough to keep your urine very light colored). This will help keep a healthy flow of urine. Do not lift >25 lbs until your followup Avoid constipation. Please use a stool softener (Colace) for the first two weeks after your procedure Be sure to finish the antibiotics as prescribed. If you go home with a catheter, please wash tubing where it enters your body twice daily with mild soap (Dove or Dial). Once your catheter is removed, expect some blood in your urine and some burning when you urinate. You should have an appointment to have this removed, if you do not please call our office to arr erica. When to call [facility] at [phone]: Your urine contains heavy blood clots You are constantly leaking urine or your catheter is not draining Fever of 101F or higher, chills, nausea, or vomiting Your pain is not relieved with medication Pending Studies at Discharge: Yes (pathology) Stand-Alone Forms: My [employer], Smoking Cessation Medications and DC Order Prescriptions: New sulfamethoxazole-trimethoprim 800-160 mg tablet 1 tab PO BID 5 Days Qty: 10 0RF phenazopyridine [Pyridium] 100 mg tablet 100 mg PO BID PRN (Reason: pain) Qty: 7 0RF Rx Instructions: Bladder pain Continued nitroglycerin 0.4 mg tablet, sublingual 0.4 mg sublingual DIRECTED PRN (Reason: Chest Pain) amlodipine [Norvasc] 5 mg Tablet 5 mg PO QAM Qty: 30 0RF acetaminophen [Mapap (acetaminophen)] 325 mg Tablet 650 mg PO Q4H PRN (Reason: pain) Qty: 30 0RF insulin glargine [Lantus U-100 Insulin] 100 unit/mL Solution 22 unit SUBCUT QAM atorvastatin 10 mg Tablet 10 mg PO PM aspirin 81 mg Tablet,Delayed Release (Dr/Ec) 81 mg PO QAM pantoprazole 40 mg Tablet,Delayed Release (Dr/Ec) 40 mg PO QAM metformin 1,000 mg Tablet 1,000 mg PO BID fosinopril 40 mg Tablet 40 mg PO QAM hydrochlorothiazide 25 mg tablet 12.5 mg PO QAM metoprolol succinate 25 mg tablet extended release 24 hr 50 mg PO QAM cholecalciferol (vitamin D3) 25 mcg (1,000 unit) Tablet 50 mcg PO TID finasteride 5 mg tablet 5 mg PO PM Discharge Orders: Discharge Order (Routine); Ordered 08/28/22 Ordered By: Roula Sun/Other Patient Handouts: Managing Type 2 Diabetes Admission Data Admit Date/Time: 08/27/22 08:47 Attending Provider: Quentin Kline Admit Provider: Quentin Kline Primary Care Provider: Cortez Root Other Providers: Og Carrasco ; Roula Ng ; Mendez Gerardo ; Cortez Chiu ; Yury Núñez ; Hua Vegas ; Daniel Fernandez ; Joslyn Verduzco ; Lynn Mandujano ; Bobby Alfonso ; Joe Munguia ; Jennifer Lewis ; Reynaldo Diaz ; Mike Magallon ; Zulema Flores ; Shanna Johnson ; Marlene Patino ; Durga Olivia ; Nils Vivar ; Ela Rice ; Roula Shaver ; Tyson Britt ; Petr Arrieta ; Mendez Bailey ; Naz Underwood ; Anthony Patel ; Moy Royal ; Ericka Osman ; Damian Craft ; Sirena Pineda ; Dex Villalobos ; Lisette eBltrán ; Frank Peng ; Rell Mariscal ; Yazmin Pate ; Curt Cotto ; Leatha Jorge Other Interventions: Discharge Summary Assessment (RN) Last Done: 08/28/22 15:29 Coding Level of Care Code HOSP INP/OBS DISCH 30 MIN/LESS Diagnoses Status post transurethral resection of prostate Z90.79 BPH w urinary obs/LUTS N40.1; N13.8
--- NOTE | 2022-08-28 14:32 | Pharmacy Report ---
Pharmacy Glycemic Short Note 2 - Date of Service August 28, 2022 - Glycemic Short BSG Results (Last 24 hours): 08/27/22 08/27/22 08/28/22 16:40 20:35 06:48 Glucose 153 H POC Glucose 137 H 119 H 08/28/22 08/28/22 07:39 11:54 Glucose POC Glucose 158 H 188 H OUTPATIENT ANTIDIABETIC REGIMEN: * Lantus 22 units SQ qAM (not taken this AM per patient) * metformin 1000 mg PO BID * HbA1C per patient report 8 on 08/18/22 ASSESSMENT: * Mr Lopez is a 77 y/o M s/p surgery today. Per chart, patient received no dexamethasone. Per patient report, he did not take Lantus this AM. * BSGs today are 117-109-87 mg/dL. After BSG of 87 mg/dL, patient ate some crackers and juice. * Patient amenable to receiving Lantus with dinner this evening if his BSGs are high. * Will provide Lantus if patient's BSGs greater than 140 mg/dL at dinnertime- only half of home dose of Lantus since BSGs trending downwards today. * Novolog weight-based stress of 2. * Hold metformin since patient postop. 08/28: * Patient received no basal or bolus insulin overnight. Fasting BSG was 158 mg/dL this morning. Lantus 11 units was ordered for this morning as patient receives 22 units of Lantus daily outpatient. Correction factor and carbohydrate ratio (CF: 25, CR: 8) were continued for breakfast time. * Lunch time BSG came back at 188 mg/dL and correction factor and carbohydrate ratio were tightened (CF: 20, CR: 7). * Patient is currently not ordered any IV or oral steroids. * Patient is ordered a carb consistent diet at this time. PLAN FOR INPATIENT GLYCEMIC CONTROL: * Hold outpatient oral diabetes medications * Basal insulin * Lantus 11 units SQ once on 08/28 at 0900 * Bolus insulin * NovoLog per scale ACHS or Q6hrs while NPO * Goal Range: Low 110 mg/dL - High 140 mg/dL * Correction Factor: 20 mg/dL/unit * Nutritional / Prandial insulin per carb ratio of 1 unit per 7 grams CHO consumed
[2022-08-29] MEDS ORDERED: hydroCHLOROthiazide 25 MG TAB PO SCH (09:00)
== END 2022-08-28 16:42 | disposition home or self-care (01) ==
LOC: ASU 07:53 → 2W 07:53
DX: I86.8 Varicose veins of other specified sites; R33.9 Retention of urine, unspecified; Z95.5 Presence of coronary angioplasty implant and graft; Z79.4 Long term (current) use of insulin; N32.0 Bladder-neck obstruction; Z79.82 Long term (current) use of aspirin; G47.30 Sleep apnea, unspecified; N40.1 Benign prostatic hyperplasia with lower urinary tract symptoms; I25.10 Atherosclerotic heart disease of native coronary artery without angina pectoris; K22.70 Barrett's esophagus without dysplasia; Z99.89 Dependence on other enabling machines and devices; E11.319 Type 2 diabetes mellitus with unspecified diabetic retinopathy without macular edema; I10 Essential (primary) hypertension; Z79.84 Long term (current) use of oral hypoglycemic drugs; Z88.8 Allergy status to other drugs, medicaments and biological substances; E11.40 Type 2 diabetes mellitus with diabetic neuropathy, unspecified; Z79.899 Other long term (current) drug therapy; E78.5 Hyperlipidemia, unspecified

== ENCOUNTER 2023-02-17 06:37 | Observation (INO) ==
[2023-02-17] MEDS ORDERED: HEPARIN (PORCINE) 1000 UNIT/ML 10 ML (CATH LAB USE ONLY) ONE ×2 (08:23→09:52)
[2023-02-17] MEDS ORDERED: niCARdipine HCL INJ 2.5 MG/ML 10 ML AMP ONE (08:23)
[2023-02-17] MEDS ORDERED: MIDAZOLAM HCL 1 MG/ML 2ML VIAL ONE ×3 (08:23→09:51)
[2023-02-17] MEDS ORDERED: fentaNYL citrate PF 100 MCG/2 ML VIAL ONE ×2 (08:23→09:44)
[2023-02-17] MEDS ORDERED: NITROGLYCERIN/D5W 100MCG/ML 20ML SYR ONE (08:24)
--- NOTE | 2023-02-17 08:28 | History & Physical Bridge Note ---
Date of Service February 17, 2023 History & Physical Bridge Note I have examined the patient, reviewed the History & Physical and in the interval since the performance of the History & Physical I have noted the following changes of clinical significance: no changes noted
--- NOTE | 2023-02-17 08:28 | Pre Anesthesia Assessment ---
Date of Service February 17, 2023 Pre Sedation Assessment Vital Signs Pulse Resp BP Pulse Ox O2 Del Method 02/17/23 07:12 57 L 14 167/96 H 100 Room Air Cardiovascular RRR, no murmur, no edema Respiratory normal respiratory effort, lungs clear to auscultation Pre-Sedation Airway Assessment Smoking Status: Never smoker Hx Sleep Apnea: No Hx Difficult Intubation: No Short, Thick Neck: No Thyromental Distance: > or= 3.5 Finger Breadths Oral Cavity: + Dental Abnormalities Mallampati Class: III ASA: ASA2 NPO Status Date of Last Intake of Fluids: 02/16/23 Date of Last Intake of Solid Food: 02/16/23 Procedure Planning Contraindications for Sedation: none Current Medications Reviewed: Yes Notes The planned sedation has been discussed with the patient. Informed Consent was obtained. I have identified the patient, determined the appropriateness of sedation and have assessed the patient immediately prior to the procedure. All medicine(s) and interventions are by my order.
[2023-02-17] MEDS ORDERED: ASPIRIN 81 MG CHEW ONE (08:32)
[2023-02-17] MEDS ORDERED: ADENOSINE IV SOLN 3 MG/ML 20 ML VIAL IV ONE (09:07)
[2023-02-17] MEDS ORDERED: CLOPIDOGREL BISULFATE 300 MG TAB ONE (10:53)
[2023-02-17] MEDS ORDERED: ONDANSETRON INJ 2 MG/ML 2 ML VIAL IV PRN (11:29)
[2023-02-17] MEDS ORDERED: NITROGLYCERIN SL 0.4 MG/TAB TAB SL PRN (11:29)
[2023-02-17] MEDS ORDERED: ACETAMINOPHEN 325 MG TAB PO PRN (11:29)
--- NOTE | 2023-02-17 11:29 | Post Anesthesia Assessment ---
Date of Service February 17, 2023 Post Sedation Assessment Vital Signs Pulse Resp BP Pulse Ox O2 Del Method 02/17/23 11:15 48 L 18 164/70 H 100 Room Air 02/17/23 11:00 52 L 18 167/96 H 98 Room Air 02/17/23 07:12 57 L 14 167/96 H 100 Room Air Recovery Score Activity: Moves 4 extremities Respiration: Deep Breath/Cough Circulation: +/-20% PreAnes Value Consciousness: Fully Awake Oxygen Saturation: > 92% On Room Air Post Anesthesia Score: 10 Discharge Sedation Level of Care: Fast Track Phase II Post Sedation Plan On clinical assessment, the patient appears to have tolerated the sedation without complications. Patient is recovering as anticipated. Patient will continue to be monitored by nursing and may be discharged when sedation discharge criteria are met per below protocol. Upon Completions of procedure up to 15 minutes continue every 5 minute vital signs and the P.A.R. score; then discharge to a Phase I or Fast Track to Phase II per the following guidelines: * Discharge Patient to appropriate Phase II area if PAR is 8 or greater or return to pre- procedure baseline. The post - procedure orders will be as directed. * If PAR score is less than 8 or not return to pre-procedure baseline then patient will follow Phase I monitoring till PAR is reached for Phase II. The Phase I may be done in procedure room or may call to secure a Phase I area. * If naloxone or flumazenil are used for reversal, hold in Phase I for continued monitoring from when last reversal dose was given for a minimum of 60 minutes or longer pending the nurse and/or physician discretion of patient condition before discharge to Phase II. Please call the Sedation Physician to re-evaluate and complete post-note for discharge to Phase II area. Do NOT discharge from procedure sedation or Phase 1 until post- sedation evaluation note is complete by procedure /sedation MD Sedation Discharge Instructions to be given to the patient at discharge to home.
[2023-02-17] MEDS ORDERED: SODIUM CHLORIDE 0.9% 1,000 ML IV SCH (11:30)
[2023-02-17] MEDS ORDERED: PHARMACY GLYCEMIC MGMT CONSULT PRN (11:33)
[2023-02-17] MEDS ORDERED: GLUCOSE 40% GEL 15 GM TUBE PO PRN (11:33)
[2023-02-17] MEDS ORDERED: GLUCOSE 10 TAB/TUBE PO PRN (11:33)
[2023-02-17] MEDS ORDERED: CARBOHYDRATES FOR HYPOGLYCEMIA PO PRN (11:33)
[2023-02-17] MEDS ORDERED: DEXTROSE 50% 50 ML SYRINGE IV PRN (11:33)
[2023-02-17] MEDS ORDERED: GLUCAGON FOR INJ 1 MG VIAL SQ PRN (11:33)
--- NOTE | 2023-02-17 13:58 | Cardiac Catheterization ---
[facility] Data: Distributor Publications Cardiac Status Clinical evaluation leading to the procedure CAD Presenation: Unstable angina Anginal Classification: CCS III Heart Failure: No Diagnostic Physicians Name: Magdy Awad MD Closure Device Recommendations: PCI without planned CABG Cardiac Cath Procedure Full Procedure Date February 17, 2023 Pre-Procedure Diagnosis Pre-Procedure Diagnosis: Angina and CAD AUC Score AUC Score: 7 Post-Procedure Diagnosis Post-Procedure Diagnosis: Severe CAD, Successful PCI and Normal Intracardiac Pressures Procedure(s) Performed Procedure(s) Performed: Coronary Angiography, Left Heart Cath, Ultrasound Guided Vascular Access, IVUS, Femoral Artery Angiography and Procedure (Shockwave IVL) Poultry Process Worker Magdy Awad MD Manager Digital(s) Bobby Dalal Estimated Blood Loss Estimated Blood Loss: 5 Medication(s) Medication(s): Clopidogrel, Fentanyl, Heparin, Lidocaine 1%, Nicardipine, Nitroglycerin and Versed Summary of Findings Indication: History of coronary disease post 2 stents to LAD in 2005. Recent exertional shortness of breath/jaw pain. Access: 6 Fr right radial artery, 6 Fr right FIRST BEATER under ultrasound guidance Catheters: Baxter, 5 Fr EBU 3.5 guide, 6 Fr EBU 3 5 guide Findings: LM -calcified, eccentric plaque involving distal left main at bifurcation up to 40% angiographically (IVUS revealed circumferential calcium at bifurcation extending into ostial LAD). LAD -medium caliber, heavily calcified, proximal to mid LAD stents with diffuse in-stent restenosis up to 60 to 70% and distal aspect of stent with 60% disease just distal to stent. Remainder of LAD without significant disease and wraps around apex. Small jailed D1 without significant disease. Medium jailed D2 with 30-40% ostial. Circumflex -medium caliber, 30% ostial, remainder of circumflex that significant disease. Medium OM1, OM 2 without disease. RCA -dominant, medium caliber, 30% lateproximal to mid stenosis, remainder of vessel without significant disease. LVEDP -11 FFR of LAD/ostial circumflex procedure: -Left main cannulated with 5 Fr EBU 3.5 guide (unable to pass 6 Fr guide across brachial artery spasm). -Kline FFR wire navigated into mid LAD -IFR of LAD 0.85FFR wire revealed no significant change in pressure across distal aspect of stent. Minimal change across proximal LAD/ostial left main. IVUS catheter placed to proximal LAD (unable to pass into stents). Pullback revealed calcified eccentric proximal disease and circumferential calcium in distal left main Kline FFR wire removed from LAD and navigated into mid circumflex IFR of proximal circumflex 1.0 -Coronary angiography revealed no apparent complications post wire/catheter removal Decision to proceed with PCI of LAD in-stent restenosis -- PCI -- Antithrombotic therapy: Heparin, clopidogrel Procedure: Right FIRST BEATER access obtained under ultrasound guidance with placement of 6 Fr sheath Left main cannulated with EBU 3.5 guide Pre-procedure flow GENA 3 Radiologic Technology Program Director 50 wire passed across lesion into distal vessel Significant difficulty passing equipment across proximal edge of prior stents. With the aid of a telescope support catheter eventually able to predilate in- stent restenosis with 2.5 compliant and 3.0 NC balloon In-stent restenosis and proximal edge disease further dilated with shockwave intravascular lithotripsy 2.5 balloon, 80 pulses Distal aspect of prior stent restented with 2.75 x 18 mm [place] drug-eluting stent extending across mid segment disease just distal to prior stents. New and old stents further post-dilated with 3.0 noncompliant balloon Repeat IVUS revealed no apparent proximal edge or left main dissection. IC vasodilators administered for spasm Post procedure GENA 3 flow, stents well expanded with no apparent cardiac complications. Arterial Closure: TR band Summary: 1. Multivessel coronary artery disease -40% distal left main (negative by IFR). Diffuse proximal to mid LAD ISR 60 to 70% with 60% stenosis just distal to stents (positive IFR 0.85). 30% ostial circumflex (negative IFR). 30% lateproximal to mid RCA disease 2. Normal intracardiac filling pressure 3. Successful PCI of proximal to mid LAD ISR with intravascular lithotripsy and new stent overlapping distal aspect of prior stents (2.75 x 18 mm [place]; post- dilated with 3.0 NC). Recommendations: To PCU for continued monitoring Loaded with Clopidogrel 600mg Continue dual-antiplatelet therapy for at least 1 year. Consider extended P2Y12 in the setting of overlapping stents. Further antianginal therapy, ASCVD risk factor modification, cardiac Rehab, arrhythmia monitoring per Dr. Weaver Hemodynamics Rest Ao:: 162/89/145 Final Ao: 184/61/107 LV: 140/11 Recommendations Recommendations: PCI without planned CABG Specimens Specimens: None Radiation Exposure (mGy) 5671 Contrast (mls) 135 Anesthesia Moderate 0548-4231 Procedural Complication(s) None Disposition PCU I attest to the content of the Intraoperative Record and any orders documented therein. Any exceptions are noted below. [facility] Card Cath Procedure Codes Cardiac Catheterization Procedure 1: Cardiovascular Cath Procedures: 23626 Coronaries and LHC (+/-LV) Procedure 2: Cardiovascular Cath Procedures: 63812 (Doppler) Pressure Wire Procedure 3: Cardiovascular Cath Procedures: 39152 (Doppler) Pressure Wire Addl vessel Therapeutic Services & Ancillary Procedure 1: Cardiovascular Tx and Anc Procedures: 84106 Ultrasonic Guidance Vascular Access Moderate Sedation Procedure 1: Sedation/Anesthesia: 92530 Mod Sedation by the same physician;Init15 Min Child Age 5 & Up Procedure 2: Sedation/Anesthesia: 78324 Mod Sedation by the same physician; Ea [id number] Minutes Stenting Procedure 1: Cardiovascular Stent Procedures: 80090 Perc transcatheter placement of intracoronary stent(s), with ang PG Care Time/CCT Total # of Minutes Spent Total Time Spent with Patient: Total time spent is greater than 50% in coordination of care (as documented) at patient's floor/unit and/or counseling patient:
--- NOTE | 2023-02-17 15:10 | Pharmacy Report ---
Pharmacy Glycemic Short Note 2 - Date of Service February 17, 2023 - Glycemic Short BSG Results (Last 24 hours): 02/17/23 14:54 POC Glucose 104 H OUTPATIENT ANTIDIABETIC REGIMEN: * Lantus 22 units SC qAM * Metformin 1 g PO BIDM HbA1c ordered for 02/18/23 ASSESSMENT: * RG is a 77 year old male POD #0 s/p cardiac catheterization * BSG postoperatively is 104 mg/dL * Patient reports taking half dose of insulin glargine this morning (will utilize scale this evening) * Diet ordered postoperatively PLAN FOR INPATIENT GLYCEMIC CONTROL: * Hold outpatient oral diabetes medications * Basal insulin * Lantus 11 units SC this morning prior to admission (patient reported) * Lantus 0-10 units SC HS (see EHR for details) * Bolus insulin * NovoLog per scale ACHS or Q6hrs while NPO * Goal Range: Low 110 mg/dL - High 140 mg/dL * Correction Factor: 30 mg/dL/unit * Nutritional / Prandial insulin per carb ratio of 1 unit per 10 grams CHO consumed
[2023-02-17] MEDS: INSULIN ASPART PER UNIT CHARGE SC SCH ×2 (17:15→21:31)
[2023-02-17] MEDS: lisinopril 20 MG TAB PO SCH (20:27)
[2023-02-17] MEDS: FINASTERIDE 5 MG TAB PO SCH ×2 (20:27→20:32)
[2023-02-17] MEDS ORDERED: LANTUS PER UNIT CHARGE SQ SCH (21:00)
[2023-02-18] MEDS: INSULIN ASPART PER UNIT CHARGE SC SCH (07:50)
[2023-02-18] MEDS: lisinopril 20 MG TAB PO SCH (07:51)
[2023-02-18 08:07] LABS: Estimated Average Glucose 163 mg/dl; Hemoglobin A1C 7.3 % (4.5-5.6)
[2023-02-18] MEDS ORDERED: METOPROLOL SUCC 50MG EXT REL TAB PO SCH (09:00)
[2023-02-18] MEDS ORDERED: amLODIPine BESYLATE 5 MG TAB PO SCH (09:00)
[2023-02-18] MEDS ORDERED: lisinopril 40 MG TAB PO SCH (09:00)
[2023-02-18] MEDS ORDERED: PANTOprazole 40 MG TAB PO SCH (09:00)
[2023-02-18] MEDS ORDERED: LANTUS PER UNIT CHARGE SC SCH (09:00)
[2023-02-18] MEDS ORDERED: hydroCHLOROthiazide 25 MG TAB PO SCH (09:00)
[2023-02-18] MEDS ORDERED: CLOPIDOGREL BISULFATE 75 MG TAB PO SCH (09:00)
[2023-02-18] MEDS ORDERED: ATORVASTATIN 40 MG TAB PO SCH (09:00)
[2023-02-18] MEDS ORDERED: LANTUS PER UNIT CHARGE SQ SCH (09:00)
[2023-02-18] MEDS ORDERED: ASPIRIN 81 MG ECTAB PO SCH (09:00)
--- NOTE | 2023-02-18 10:38 | Discharge Summary ---
Date of Service February 18, 2023 Admission HPI Per Admitting Provider Mr. Lopez is a 77-year-old man with a history of type 2 diabetes and coronary artery disease post prior PCI with 2 stents to his LAD in 2005 referred for cardiac catheterization in the setting exertional chest/jaw discomfort and intermittent acute episodes of shortness of breath. He follows with Dr. Weaver for his cardiac care Discharge Data Procedures Performed Operation Date: 02/17/23 08:00 Actual Procedures p Cath, Left with Cors and Vent - Petr Awad MD s Cineradiography w/Routine Exam - Petr Awad MD p Drug Eluting Stent SGl Vessel - Petr Awad MD Hospital Course (1) CAD (coronary artery disease): Patient underwent cardiac catheterization via right radial artery. Was found to have multivessel disease including calcified proximal to mid LAD ISR. Underwent PCI via right common femoral artery. Cath findings: 1. Multivessel coronary artery disease -40% distal left main (negative by IFR). Diffuse proximal to mid LAD ISR 60 to 70% with 60% stenosis just distal to stents (positive IFR 0.85). 30% ostial circumflex (negative IFR). 30% lateproximal to mid RCA disease 2. Normal intracardiac filling pressure 3. Successful PCI of proximal to mid LAD ISR with intravascular lithotripsy and new stent overlapping distal aspect of prior stents (2.75 x 18 mm Manoj; post- dilated with 3.0 NC). Post procedure he was admitted for observation on telemetry. He had no postprocedural chest pain. No arrhythmias on telemetry. This morning he was feeling well. No apparent access site complications. He was discharged home on dual antiplatelet therapy with aspirin, clopidogrel. He will follow-up with Dr. Weaver for further antianginal therapy, ASCVD risk factor modification, cardiac Rehab, arrhythmia monitoring. Discharge Instructions Home Medications nitroglycerin 0.4 mg sublingual tablet 0.4 mg sublingual DIRECTED PRN Chest Pain 06/19/18 [History Confirmed 02/17/23] acetaminophen 325 mg tablet (Mapap (acetaminophen)) 650 mg PO Q4H PRN pain #30 tabs 06/23/18 [Rx Confirmed 02/17/23] amlodipine 5 mg tablet (Norvasc) 5 mg PO QAM #30 tabs 06/23/18 [Rx Confirmed 02/17/23] aspirin 81 mg tablet,delayed release 81 mg PO QAM 02/25/22 [History Confirmed 02/17/23] fosinopril 40 mg tablet 40 mg PO QAM 02/25/22 [History Confirmed 02/17/23] hydrochlorothiazide 25 mg tablet 12.5 mg PO QAM 02/25/22 [History Confirmed 02/17/23] insulin glargine 100 unit/mL subcutaneous solution (Lantus U-100 Insulin) 22 unit subcut QAM 02/25/22 [History Confirmed 02/17/23] metformin 1,000 mg tablet 1,000 mg PO BID 02/25/22 [History Confirmed 02/17/23] metoprolol succinate 25 mg tablet,extended release 24 hr 50 mg PO QAM 02/25/22 [History Confirmed 02/17/23] pantoprazole 40 mg tablet,delayed release 40 mg PO QAM 02/25/22 [History Confirmed 02/17/23] cholecalciferol (vitamin D3) 25 mcg (1,000 unit) tablet 50 mcg PO TID 08/24/22 [History Confirmed 02/17/23] finasteride 5 mg tablet 5 mg PO PM 08/24/22 [History Confirmed 02/17/23] atorvastatin 40 mg tablet 40 mg PO QAM #30 tabs 02/18/23 [Rx] clopidogrel 75 mg tablet 75 mg PO QAM #30 tabs 02/18/23 [Rx] Coding Level of Care Code 22900 IN/OBS DISCH 30 MIN/LESS Diagnoses CAD (coronary artery disease) I25.10
--- NOTE | 2023-02-19 19:35 | Electrocardiogram Report ---
Test Reason : Blood Pressure : / mmHG Vent. Rate : 049 BPM Atrial Rate : 049 BPM P-R Int : 180 ms QRS Dur : 102 ms QT Int : 462 ms P-R-T Axes : 028 -34 -02 degrees QTc Int : 417 ms Sinus bradycardia Left axis deviation Minimal voltage criteria for LVH, may be normal variant Abnormal ECG When compared with ECG of 14-MAR-2022 12:49, Premature atrial complexes are no longer Present T wave inversion no longer evident in Anterolateral leads Confirmed by Cade Aguilar ([id number]) on 02/19/2023 7:34:49 PM Referred By: Adrianna Weaver Confirmed By:Cade Aguilar
== END 2023-02-18 11:35 | disposition home or self-care (01) ==
LOC: CC 06:37 → 2S 06:37